=== PATIENT | male | born 1955 | race Two or more races ===

== ENCOUNTER 2021-11-20 14:16 | Emergency (ER) | payer MEDICAID, OTHER ==
[~2021-11-20] VITALS: Ht 160 cm; Wt 72.6 kg
[2021-11-20 16:55] LABS: Basophils # (auto) 0.1 10 ^3/uL (0-0.2); Eosinophils # (auto) 0.1 10 ^3/uL (0-0.8); Eosinophils % (auto) 1.2 % (0.0-7.0); Hematocrit 44.3 % (41.0-53.0); Hemoglobin 15.1 g/dL (13.5-17.5); Mean Corpuscular Hemoglobin 28.7 pg (28.0-32.0); Mean Corpuscular Hgb Conc. 34.2 g/dL (32.0-36.0); Monocytes # (auto) 0.5 10 ^3/uL (0-1.3); Monocytes % (auto) 5.6 % (0.0-12.0); Neutrophils % (auto) 57.2 % (37.0-80.0); Nucleated Red Blood Cells % 0.1 %; Red Blood Cells 5.28 10^6/uL (4.5-5.90); Red Cell Distribution Width 13.7 % (11.8-14.3); White Blood Cell 8.7 10^3/uL (4.4-10.8)
[2021-11-20 17:06] LABS: Albumin 3.5 g/dL (3.4-5.0); Calcium 8.7 mg/dL (8.5-10.1); Potassium 4.1 mmol/L (3.5-5.1)
[2021-11-20] MEDS ORDERED: AZIT250T8 PO (17:26)
[2021-11-20 17:27] LABS: BUN/Creatinine Ratio 15.6; Bilirubin, Total 0.4 mg/dL (0.2-1.0); Total Protein 7.3 g/dL (6.4-8.2)
[2021-11-20 18:15] VITALS: BP 204/95
== END 2021-11-20 18:30 | disposition home or self-care (01) ==
LOC: ER 14:16
DX: R07.89 Other chest pain (principal); J02.9 Acute pharyngitis, unspecified
CPT/HCPCS: 36415; 71046; 80053; 84484; 85025; 93005

== ENCOUNTER 2022-01-21 07:57 | Emergency (ER) | payer MEDICAID ==
[~2022-01-21] VITALS: Ht 160 cm; Wt 72.6 kg
[~2022-01-21 07:57] MED LIST: AZIT250T8 PO
[2022-01-21] MEDS ORDERED: cloNIDine HCL 0.1 MG TAB ONE (08:05)
[2022-01-21] MEDS ORDERED: cloNIDine HCL 0.1 MG TAB PO ONE (08:15)
[2022-01-21] MEDS ORDERED: AMOX-277 PO (10:00)
[2022-01-21] MEDS ORDERED: ACET-1158 PO (10:00)
[2022-01-21 10:08] VITALS: BP 95/59
== END 2022-01-21 10:43 | disposition home or self-care (01) ==
LOC: ER 07:57
DX: K02.9 Dental caries, unspecified (principal); I10 Essential (primary) hypertension; E11.9 Type 2 diabetes mellitus without complications; E78.5 Hyperlipidemia, unspecified; Z90.49 Acquired absence of other specified parts of digestive tract; Z79.2 Long term (current) use of antibiotics; Z79.899 Other long term (current) drug therapy
CPT/HCPCS: 93005

== ENCOUNTER 2022-02-22 06:21 | Emergency (ER) | payer MEDICAID ==
[~2022-02-22] VITALS: Ht 160 cm; Wt 72.6 kg
[~2022-02-22 06:21] MED LIST changes: +ACET-1158 PO; +AMOX-277 PO
[2022-02-22 09:15] LABS: Basophils # (auto) 0.1 10 ^3/uL (0-0.2); Basophils % (auto) 1.2 % (0.0-2.0); Eosinophils # (auto) 0 10 ^3/uL (0-0.8); Eosinophils % (auto) 0.5 % (0.0-7.0); Hemoglobin 15.4 g/dL (13.5-17.5); Lymphocytes # (auto) 1.8 10 ^3/uL (0.4-5.4); Lymphocytes % (auto) 23.6 % (10.0-50.0); Mean Corpuscular Hemoglobin 29.9 pg (28.0-32.0); Mean Corpuscular Hgb Conc. 34.3 g/dL (32.0-36.0); Monocytes # (auto) 0.5 10 ^3/uL (0-1.3); Monocytes % (auto) 6.7 % (0.0-12.0); Neutrophils # (auto) 5.2 10 ^3/uL (1.6-8.6); Nucleated Red Blood Cells % 0.2 %; Red Blood Cells 5.17 10^6/uL (4.5-5.90); Red Cell Distribution Width 13.7 % (11.8-14.3); White Blood Cell 7.7 10^3/uL (4.4-10.8)
[2022-02-22 09:37] LABS: INR 0.98 (0.9-1.15)
[2022-02-22 09:55] LABS: Albumin 3.7 g/dL (3.4-5.0); Calcium 9.3 mg/dL (8.5-10.1); Potassium 4.6 mmol/L (3.5-5.1)
[2022-02-22 09:58] LABS: BUN/Creatinine Ratio 22.4; Bilirubin, Total 0.5 mg/dL (0.2-1.0); Total Protein 7.8 g/dL (6.4-8.2)
[2022-02-22 12:34] LABS: Urine Bacteria NONE SEEN /hpf (None Seen); Urine Blood Negative /uL (Negative); Urine Hyaline Cast FEW /lpf (0 - 2); Urine Specific Gravity 1.021 (1.001-1.035); Urine WBC 1 /hpf (0 - 3)
[2022-02-22 18:29] VITALS: BP 140/69
== END 2022-02-22 18:39 | disposition home or self-care (01) ==
LOC: ER 06:21
DX: M79.89 Other specified soft tissue disorders (principal); E11.65 Type 2 diabetes mellitus with hyperglycemia; E78.5 Hyperlipidemia, unspecified; I10 Essential (primary) hypertension; Z90.49 Acquired absence of other specified parts of digestive tract
CPT/HCPCS: 36415; 71045; 80053; 81001; 83880; 84484; 85025; 85610; 93005; 93970

== ENCOUNTER 2022-03-19 10:30 | Inpatient (IN) | payer MEDICAID ==
[~2022-03-19] VITALS: Ht 160 cm; Wt 64.6 kg
[2022-03-19] MEDS ORDERED: ASPirin 81 mg TAB PO ONE (11:00)
[2022-03-19 12:16] LABS: Basophils # (auto) 0.2 10 ^3/uL (0-0.2); Basophils % (auto) 1.9 % (0.0-2.0); Eosinophils # (auto) 0.1 10 ^3/uL (0-0.8); Eosinophils % (auto) 1.7 % (0.0-7.0); Hematocrit 43.5 % (41.0-53.0); Hemoglobin 15.1 g/dL (13.5-17.5); Lymphocytes # (auto) 2.5 10 ^3/uL (0.4-5.4); Lymphocytes % (auto) 31.2 % (10.0-50.0); Mean Corpuscular Hemoglobin 29.8 pg (28.0-32.0); Mean Corpuscular Hgb Conc. 34.8 g/dL (32.0-36.0); Mean Corpuscular Volume 85.7 fL (80.0-100.0); Monocytes # (auto) 0.4 10 ^3/uL (0-1.3); Monocytes % (auto) 5.2 % (0.0-12.0); Neutrophils # (auto) 4.7 10 ^3/uL (1.6-8.6); Nucleated Red Blood Cells % 0.6 %; Red Blood Cells 5.08 10^6/uL (4.5-5.90); White Blood Cell 7.9 10^3/uL (4.4-10.8)
[2022-03-19 12:49] LABS: Potassium 4.6 mmol/L (3.5-5.1)
[2022-03-19 12:53] LABS: Albumin 3.4 g/dL (3.4-5.0); BUN/Creatinine Ratio 19.5; Calcium 8.6 mg/dL (8.5-10.1)
[2022-03-19 13:06] LABS: Bilirubin, Total 0.5 mg/dL (0.2-1.0); Total Protein 7.4 g/dL (6.4-8.2)
[2022-03-19] MEDS ORDERED: NITROGLYCERIN 0.4 MG SL TAB SL PRN (17:15)
[2022-03-19] MEDS ORDERED: MORPHINE SULFATE INJ 2 MG/ml SYRG IV PRN ×2 (17:15→20:30)
[2022-03-19] MEDS ORDERED: hydrALAZINE HCL 20 MG/ML VL IV PRN (17:30)
[2022-03-19] MEDS ORDERED: LABETALOL HCL 5 MG/ML 4ML SYRINGE IV PRN (17:30)
[2022-03-19] MEDS ORDERED: ONDANSETRON HCL 4 MG/2 ML VIAL IV PRN (20:30)
[2022-03-19] MEDS ORDERED: DOCUSATE SOD 100 MG CAP PO PRN (20:30)
[2022-03-19] MEDS ORDERED: FAMOTIDINE (10MG/ML) 2ML VL IV ONE (20:30)
[2022-03-19] MEDS ORDERED: ACETAMINOPHEN 325 MG TAB PO PRN (20:30)
[2022-03-19] MEDS ORDERED: LORazepam 0.5 MG TAB PO PRN (20:30)
[2022-03-19 20:44] LABS: Magnesium 1.8 mg/dL (1.6-2.6); Phosphorus 3.1 mg/dL (2.5-4.90)
[2022-03-19 20:52] LABS: INR 0.97 (0.9-1.15); Partial Thromboplastin Time 27.1 sec (23.6-33.0)
[2022-03-19] MEDS: ATORVASTATIN 20 MG TAB PO SCH (21:31)
[2022-03-19] MEDS ORDERED: ATORVASTATIN 20 MG TAB PO SCH (22:00)
[2022-03-19 23:00] VITALS: BP 153/87
[2022-03-19 23:51] VITALS: BP 149/87
[2022-03-20] MEDS ORDERED: METOPROLOL SUCCINATE XL 50 MG TAB PO ONE (00:15)
[2022-03-20] MEDS ORDERED: DEXTROSE (50%) 50ML SYRG IV PRN (00:15)
[2022-03-20] MEDS ORDERED: BENAZEPRIL HCL 10 MG TAB PO ONE (00:15)
[2022-03-20] MEDS ORDERED: LORA-622 PO (00:17)
[2022-03-20] MEDS ORDERED: GABA300C10 PO (00:17)
[2022-03-20] MEDS ORDERED: METF-370 PO (00:17)
[2022-03-20] MEDS ORDERED: LISI40TA11 PO (00:17)
[2022-03-20 01:25] LABS: Urine Bacteria NONE SEEN /hpf (None Seen); Urine Blood Negative /uL (Negative); Urine Specific Gravity 1.018 (1.001-1.035); Urine WBC <1 /hpf (0 - 3)
[2022-03-20 01:48] LABS: Alcohol, Urine < 3.0 mg/dL (0-10); Amphetamine Screen, Urine NEGATIVE (NEGATIVE); Barbiturate Scree,Urine NEGATIVE (NEGATIVE); Benzodiazephine Screen, Urine NEGATIVE (NEGATIVE); Cannabinoid Screen, Urine NEGATIVE (NEGATIVE); Cocaine Screen, Urine NEGATIVE (NEGATIVE); Opiate Scree,Urine NEGATIVE (NEGATIVE); Phencyclidine Screen, Urine NEGATIVE (NEGATIVE)
[2022-03-20 01:56] LABS: Protein, Urine 57.6 mg/dL (0.0-11.9)
[2022-03-20] MEDS ORDERED: AMIODARONE HCL (50 MG/ ML) 3 ML VIAL IV ONE (03:31)
[2022-03-20 05:00] VITALS: BP 136/72
[2022-03-20 05:24] LABS: Basophils # (auto) 0.2 10 ^3/uL (0-0.2); Basophils % (auto) 2.3 % (0.0-2.0); Eosinophils # (auto) 0.3 10 ^3/uL (0-0.8); Eosinophils % (auto) 3.5 % (0.0-7.0); Hematocrit 41.3 % (41.0-53.0); Hemoglobin 14.5 g/dL (13.5-17.5); Lymphocytes # (auto) 2.6 10 ^3/uL (0.4-5.4); Lymphocytes % (auto) 36.6 % (10.0-50.0); Mean Corpuscular Hemoglobin 29.9 pg (28.0-32.0); Mean Corpuscular Volume 85.4 fL (80.0-100.0); Monocytes # (auto) 0.5 10 ^3/uL (0-1.3); Monocytes % (auto) 7.6 % (0.0-12.0); Neutrophils # (auto) 3.6 10 ^3/uL (1.6-8.6); Nucleated Red Blood Cells % 0.1 %; Red Blood Cells 4.84 10^6/uL (4.5-5.90); Red Cell Distribution Width 13.9 % (11.8-14.3); White Blood Cell 7.2 10^3/uL (4.4-10.8)
[2022-03-20 05:44] LABS: INR 0.98 (0.9-1.15); Partial Thromboplastin Time 26.4 sec (23.6-33.0)
[2022-03-20 05:46] LABS: Magnesium 1.8 mg/dL (1.6-2.6)
[2022-03-20 05:52] LABS: Albumin 3.1 g/dL (3.4-5.0); BUN/Creatinine Ratio 19.8; Bilirubin, Total 0.7 mg/dL (0.2-1.0); CRP High Sensitivity 0.12 mg/dL (< 0.3); Calcium 8.6 mg/dL (8.5-10.1); Phosphorus 2.9 mg/dL (2.5-4.90); Total Protein 6.7 g/dL (6.4-8.2); Uric Acid 6.1 mg/dL (3.5-7.2)
[2022-03-20] MEDS ORDERED: FUROSEMIDE 20 MG/2 ML VIAL IV SCH (06:00)
[2022-03-20] MEDS: GABAPENTIN 300 MG CAP PO SCH ×3 (06:02→21:47)
[2022-03-20] MEDS: ACCU-CHEK COMFORT CURVE STRIP VI SCH ×4 (06:03→21:48)
[2022-03-20] MEDS: InsuLIN REG 1unit/0.01ml Soln (100units/ml) SC SCH ×4 (06:08→21:49)
[2022-03-20 08:00] VITALS: BP 111/58
[2022-03-20 09:09] VITALS: BP 111/96
[2022-03-20] MEDS ORDERED: ASPirin 81 mg TAB PO SCH (10:00)
[2022-03-20] MEDS: ASPirin 81 mg TAB PO SCH (10:15)
[2022-03-20] MEDS: ISOSORBIDE MONONITRATE 20 MG TAB PO SCH ×2 (10:18→21:48)
[2022-03-20] MEDS: ENOXAPARIN SOD 40 MG/0.4 ML SYRINGE SC SCH (10:18)
[2022-03-20] MEDS: FAMOTIDINE (10MG/ML) 2ML VL IV SCH (10:21)
[2022-03-20] MEDS: BENAZEPRIL HCL 10 MG TAB PO SCH (10:23)
[2022-03-20] MEDS: HYDROcodone-ACET 5/325MG TAB PO PRN (10:24)
[2022-03-20] MEDS: METOPROLOL SUCCINATE XL 50 MG TAB PO SCH (12:42)
[2022-03-20 13:00] VITALS: BP 116/62
[2022-03-20 17:21] VITALS: BP 107/54
[2022-03-20] MEDS: ATORVASTATIN 20 MG TAB PO SCH (21:47)
[2022-03-20 22:00] VITALS: BP 112/57
[2022-03-21] MEDS: HYDROcodone-ACET 5/325MG TAB PO PRN ×2 (04:25→17:50)
[2022-03-21 05:00] VITALS: BP 107/61
[2022-03-21] MEDS: GABAPENTIN 300 MG CAP PO SCH ×3 (06:43→22:47)
[2022-03-21] MEDS: ACCU-CHEK COMFORT CURVE STRIP VI SCH ×4 (06:44→22:47)
[2022-03-21] MEDS: InsuLIN REG 1unit/0.01ml Soln (100units/ml) SC SCH ×4 (06:44→22:00)
[2022-03-21] MEDS ORDERED: REGADENOSON 0.4 MG/5 ML SYRG IV ONE (08:00)
[2022-03-21 08:08] VITALS: BP 122/64
[2022-03-21 08:17] LABS: BUN/Creatinine Ratio 27.9; Calcium 8.6 mg/dL (8.5-10.1); Magnesium 2.3 mg/dL (1.6-2.6); Potassium 4.1 mmol/L (3.5-5.1)
[2022-03-21] MEDS: ASPirin 81 mg TAB PO SCH (12:03)
[2022-03-21] MEDS: FAMOTIDINE (10MG/ML) 2ML VL IV SCH (12:03)
[2022-03-21] MEDS: ENOXAPARIN SOD 40 MG/0.4 ML SYRINGE SC SCH (12:03)
[2022-03-21] MEDS: ISOSORBIDE MONONITRATE 20 MG TAB PO SCH ×2 (12:08→22:00)
[2022-03-21] MEDS: METOPROLOL SUCCINATE XL 50 MG TAB PO SCH (12:09)
[2022-03-21] MEDS: BENAZEPRIL HCL 10 MG TAB PO SCH (12:09)
[2022-03-21 12:38] VITALS: BP 158/83
[2022-03-21 17:31] VITALS: BP 138/72
[2022-03-21 22:00] VITALS: BP 110/68
[2022-03-21] MEDS: ATORVASTATIN 20 MG TAB PO SCH (22:47)
[2022-03-22 05:00] VITALS: BP 137/67
[2022-03-22] MEDS: ACCU-CHEK COMFORT CURVE STRIP VI SCH ×4 (06:24→23:16)
[2022-03-22] MEDS: GABAPENTIN 300 MG CAP PO SCH ×3 (06:24→23:16)
[2022-03-22] MEDS: InsuLIN REG 1unit/0.01ml Soln (100units/ml) SC SCH ×4 (06:25→22:00)
[2022-03-22] MEDS: ENOXAPARIN SOD 40 MG/0.4 ML SYRINGE SC SCH (07:53)
[2022-03-22 09:00] VITALS: BP 148/75
[2022-03-22] MEDS: FAMOTIDINE (10MG/ML) 2ML VL IV SCH (09:13)
[2022-03-22] MEDS: ISOSORBIDE MONONITRATE 20 MG TAB PO SCH ×2 (09:14→23:15)
[2022-03-22] MEDS: BENAZEPRIL HCL 10 MG TAB PO SCH (09:15)
[2022-03-22] MEDS: ASPirin 81 mg TAB PO SCH (09:15)
[2022-03-22] MEDS: METOPROLOL SUCCINATE XL 50 MG TAB PO SCH (09:16)
[2022-03-22] MEDS: CHOLECALCIFEROL (VITD3) 2,000 UNIT CAP/TAB PO SCH (09:17)
[2022-03-22 13:00] VITALS: BP 100/52
[2022-03-22 16:56] VITALS: BP 117/57
[2022-03-22] MEDS: HYDROcodone-ACET 5/325MG TAB PO PRN (19:34)
[2022-03-22 22:00] VITALS: BP 163/78
[2022-03-22] MEDS: ATORVASTATIN 20 MG TAB PO SCH (23:15)
[2022-03-23 05:00] VITALS: BP 112/64
[2022-03-23 06:17] LABS: Basophils # (auto) 0.1 10 ^3/uL (0-0.2); Basophils % (auto) 1.3 % (0.0-2.0); Eosinophils # (auto) 0.3 10 ^3/uL (0-0.8); Eosinophils % (auto) 3.3 % (0.0-7.0); Hematocrit 41.9 % (41.0-53.0); Hemoglobin 14.5 g/dL (13.5-17.5); Lymphocytes % (auto) 44.7 % (10.0-50.0); Mean Corpuscular Hemoglobin 29.9 pg (28.0-32.0); Mean Corpuscular Hgb Conc. 34.6 g/dL (32.0-36.0); Mean Corpuscular Volume 86.4 fL (80.0-100.0); Monocytes # (auto) 0.6 10 ^3/uL (0-1.3); Monocytes % (auto) 6.7 % (0.0-12.0); Neutrophils # (auto) 3.9 10 ^3/uL (1.6-8.6); Nucleated Red Blood Cells % 0.1 %; Red Blood Cells 4.85 10^6/uL (4.5-5.90); Red Cell Distribution Width 13.7 % (11.8-14.3); White Blood Cell 8.8 10^3/uL (4.4-10.8)
[2022-03-23 06:35] LABS: BUN/Creatinine Ratio 24.8; Calcium 8.9 mg/dL (8.5-10.1); Potassium 4.3 mmol/L (3.5-5.1)
[2022-03-23] MEDS: GABAPENTIN 300 MG CAP PO SCH ×2 (06:57→15:25)
[2022-03-23] MEDS: ACCU-CHEK COMFORT CURVE STRIP VI SCH ×3 (06:57→17:00)
[2022-03-23] MEDS: InsuLIN REG 1unit/0.01ml Soln (100units/ml) SC SCH ×3 (06:58→17:00)
[2022-03-23 08:53] VITALS: BP 131/80
[2022-03-23] MEDS: FAMOTIDINE (10MG/ML) 2ML VL IV SCH (09:11)
[2022-03-23] MEDS: CHOLECALCIFEROL (VITD3) 2,000 UNIT CAP/TAB PO SCH (09:16)
[2022-03-23] MEDS: ISOSORBIDE MONONITRATE 20 MG TAB PO SCH (09:16)
[2022-03-23] MEDS: BENAZEPRIL HCL 10 MG TAB PO SCH (09:16)
[2022-03-23] MEDS: METOPROLOL SUCCINATE XL 50 MG TAB PO SCH (09:17)
[2022-03-23] MEDS: ASPirin 81 mg TAB PO SCH (09:17)
[2022-03-23] MEDS: ENOXAPARIN SOD 40 MG/0.4 ML SYRINGE SC SCH (09:17)
[2022-03-23] MEDS: HYDROcodone-ACET 5/325MG TAB PO PRN (09:42)
[2022-03-23] MEDS ORDERED: CLOPIDOGREL BISULFATE 75 MG TAB PO SCH (10:00)
[2022-03-23] MEDS ORDERED: ASPI-378 PO (12:57)
[2022-03-23] MEDS ORDERED: CHOL20007 PO (12:57)
[2022-03-23] MEDS ORDERED: ATO40T PO (12:57)
[2022-03-23] MEDS ORDERED: METO25TA36 PO (12:57)
[2022-03-23] MEDS ORDERED: CLOP75TA28 PO (12:57)
[2022-03-23 13:00] VITALS: BP 100/61
[2022-03-23 15:26] VITALS: BP 131/80
== END 2022-03-23 18:02 | disposition home or self-care (01) | DRG 198 ==
LOC: EDBD 10:30 → ER 10:30 → TELE 17:15 → TELE-WESTW 21:45
PROVIDERS: ADMIT Hospitalist; ATTEND Internal Medicine
DX: I25.10 Atherosclerotic heart disease of native coronary artery without angina pectoris (principal); I50.33 Acute on chronic diastolic (congestive) heart failure; E11.40 Type 2 diabetes mellitus with diabetic neuropathy, unspecified; E11.51 Type 2 diabetes mellitus with diabetic peripheral angiopathy without gangrene; I16.1 Hypertensive emergency; E55.9 Vitamin D deficiency, unspecified; I73.9 Peripheral vascular disease, unspecified; E11.65 Type 2 diabetes mellitus with hyperglycemia; E78.5 Hyperlipidemia, unspecified; F17.200 Nicotine dependence, unspecified, uncomplicated; I11.0 Hypertensive heart disease with heart failure; Z20.822 Contact with and (suspected) exposure to COVID-19; J44.9 Chronic obstructive pulmonary disease, unspecified; Z91.19 Patient's noncompliance with other medical treatment and regimen; Z83.3 Family history of diabetes mellitus; Z90.49 Acquired absence of other specified parts of digestive tract; Z79.84 Long term (current) use of oral hypoglycemic drugs
CPT/HCPCS: 36415; 70450; 71045; 78452; 80048; 80053; 80061; 80307; 81001; 82306; 82550; 82728; 82962; 83036; 83615; 83690; 83735; 83880; 84100; 84156; 84443; 84484; 84550; 85025; 85379; 85610; 85652; 85730; 86141; 87040; 87081; 87086; 93005; 93017; 93306; 93925; 93970; 96374; 96375; G0378; J1815; J2405; J3490

== ENCOUNTER 2022-08-13 18:05 | Emergency (ER) | payer MEDICAID ==
[~2022-08-13] VITALS: Ht 165.1 cm; Wt 66.0 kg
[~2022-08-13 18:05] MED LIST changes: +CLOP75TA28 PO; +GABA300C10 PO; +LISI40TA11 PO; +LORA-622 PO; +METF-370 PO
[2022-08-13 18:58] LABS: Basophils # (auto) 0.2 10 ^3/uL (0-0.2); Basophils % (auto) 2.1 % (0.0-2.0); Eosinophils # (auto) 0.2 10 ^3/uL (0-0.8); Eosinophils % (auto) 2.7 % (0.0-7.0); Hematocrit 43.1 % (41.0-53.0); Hemoglobin 14.5 g/dL (13.5-17.5); Lymphocytes # (auto) 3.6 10 ^3/uL (0.4-5.4); Lymphocytes % (auto) 48.5 % (10.0-50.0); Mean Corpuscular Hemoglobin 29.2 pg (28.0-32.0); Mean Corpuscular Hgb Conc. 33.7 g/dL (32.0-36.0); Mean Corpuscular Volume 86.5 fL (80.0-100.0); Monocytes # (auto) 0.5 10 ^3/uL (0-1.3); Monocytes % (auto) 6.4 % (0.0-12.0); Neutrophils % (auto) 40.3 % (37.0-80.0); Nucleated Red Blood Cells % 0.1 %; Red Blood Cells 4.99 10^6/uL (4.5-5.90); Red Cell Distribution Width 13.3 % (11.8-14.3); White Blood Cell 7.5 10^3/uL (4.4-10.8)
[2022-08-13 19:22] LABS: Albumin 3.7 g/dL (3.4-5.0); BUN/Creatinine Ratio 18.5; Potassium 4.6 mmol/L (3.5-5.1)
[2022-08-13 19:25] LABS: Bilirubin, Total 0.4 mg/dL (0.2-1.0)
[2022-08-13 23:25] LABS: Urine Bacteria NONE SEEN /hpf (None Seen); Urine Blood Negative /uL (Negative); Urine Specific Gravity 1.015 (1.001-1.035); Urine WBC 1 /hpf (0 - 3)
[2022-08-13] MEDS ORDERED: IOHEXOL 350 MG/ML 100ML IJ ONE (23:27)
[2022-08-14 06:00] VITALS: BP 165/78
== END 2022-08-14 06:34 | disposition home or self-care (01) ==
LOC: ER 18:07
DX: R04.2 Hemoptysis (principal); E11.9 Type 2 diabetes mellitus without complications; E78.5 Hyperlipidemia, unspecified; I10 Essential (primary) hypertension; Z90.49 Acquired absence of other specified parts of digestive tract; Z88.1 Allergy status to other antibiotic agents
CPT/HCPCS: 36415; 71260; 74177; 80053; 81001; 85025; 86850; 86900; 86901; 93005; 99285; Q9967

== ENCOUNTER 2022-08-14 15:37 | Inpatient (IN) | payer MEDICAID ==
[~2022-08-14] VITALS: Ht 160 cm; Wt 67.9 kg
[2022-08-14] MEDS ORDERED: ONDANSETRON HCL 4 MG/2 ML VIAL IV ONE ×2 (16:00→22:30)
[2022-08-14] MEDS ORDERED: MORPHINE SULFATE 4 MG/ML SYR/VIAL IV ONE ×2 (16:00→22:30)
[2022-08-14] MEDS ORDERED: SODIUM CHLORIDE 0.9% 1,000 ML IVB ONE (16:00)
[2022-08-14] MEDS ORDERED: IOHEXOL 300 MG/ML 100ML BOTTLE IJ ONE (17:02)
[2022-08-14 19:09] LABS: Basophils # (auto) 0.1 10 ^3/uL (0-0.2); Basophils % (auto) 1.5 % (0.0-2.0); Eosinophils # (auto) 0 10 ^3/uL (0-0.8); Eosinophils % (auto) 0.4 % (0.0-7.0); Hematocrit 44.2 % (41.0-53.0); Hemoglobin 14.5 g/dL (13.5-17.5); Lymphocytes # (auto) 2.4 10 ^3/uL (0.4-5.4); Lymphocytes % (auto) 25.7 % (10.0-50.0); Mean Corpuscular Hemoglobin 29.1 pg (28.0-32.0); Mean Corpuscular Hgb Conc. 32.8 g/dL (32.0-36.0); Mean Corpuscular Volume 88.8 fL (80.0-100.0); Monocytes # (auto) 0.4 10 ^3/uL (0-1.3); Monocytes % (auto) 4.3 % (0.0-12.0); Neutrophils # (auto) 6.3 10 ^3/uL (1.6-8.6); Neutrophils % (auto) 68.1 % (37.0-80.0); Nucleated Red Blood Cells % 0.1 %; Red Blood Cells 4.98 10^6/uL (4.5-5.90); Red Cell Distribution Width 13.2 % (11.8-14.3); White Blood Cell 9.3 10^3/uL (4.4-10.8)
[2022-08-14 19:19] LABS: Alanine Aminotransferase 34 U/L (16-61); Albumin 3.6 g/dL (3.4-5.0); Anion Gap 12 (5-15); Aspartate Aminotransferase 17 U/L (15-37); BUN/Creatinine Ratio 19.7; Blood Urea Nitrogen 14 mg/dL (7-18); Calcium 8.3 mg/dL (8.5-10.1); Carbon Dioxide 19 mmol/L (21-32); Chloride 108 mmol/L (98-107); GFR African American 144 mL/min; GFR Non-African American 119 mL/min; Glucose 164 mg/dL (74-106); Lipase 207 U/L (73-393); Magnesium 1.9 mg/dL (1.6-2.6); Potassium 4.7 mmol/L (3.5-5.1); Sodium 139 mmol/L (136-145)
[2022-08-14 19:21] LABS: INR 0.91 (0.9-1.15); Partial Thromboplastin Time 27.1 sec (24.6-33.4)
[2022-08-14 19:22] LABS: Alkaline Phosphatase 136 U/L (45-117); Bilirubin, Total 0.4 mg/dL (0.2-1.0); Total Protein 7.2 g/dL (6.4-8.2)
[2022-08-14 19:38] LABS: Urine Bacteria NONE SEEN /hpf (None Seen); Urine Blood Negative /uL (Negative); Urine Specific Gravity 1.007 (1.001-1.035); Urine WBC <1 /hpf (0 - 3)
[2022-08-15] MEDS ORDERED: ONDANSETRON HCL 4 MG/2 ML VIAL IV PRN ×2 (03:30→11:45)
[2022-08-15] MEDS ORDERED: SODIUM CHLORIDE 0.9% 1,000 ML IV SCH (03:30)
[2022-08-15] MEDS ORDERED: DEXTROSE (50%) 50ML SYRG IV PRN ×2 (03:30→12:00)
[2022-08-15] MEDS: hydrALAZINE HCL 20 MG/ML VL IV PRN ×2 (04:31→22:14)
[2022-08-15 04:43] LABS: Hematocrit 39.3 % (41.0-53.0); Hemoglobin 13.8 g/dL (13.5-17.5)
[2022-08-15] MEDS ORDERED: ACCU-CHEK COMFORT CURVE STRIP VI SCH (06:00)
[2022-08-15] MEDS: InsuLIN REG 1unit/0.01ml Soln (100units/ml) SC SCH ×4 (08:14→17:51)
[2022-08-15] MEDS ORDERED: PANTOPRAZOLE 40 MG/10 ML VIAL INJ IV SCH (10:00)
[2022-08-15] MEDS ORDERED: LABETALOL HCL 5 MG/ML 4ML SYRINGE IV PRN (11:45)
[2022-08-15] MEDS ORDERED: MORPHINE SULFATE INJ 2 MG/ml SYRG IV PRN (11:45)
[2022-08-15] MEDS: ACCU-CHEK COMFORT CURVE STRIP VI SCH ×3 (12:18→23:59)
[2022-08-15] MEDS: SODIUM CHLORIDE 0.9% 1,000 ML IV SCH (13:35)
[2022-08-15 22:00] VITALS: BP 151/72
[2022-08-15] MEDS: PANTOPRAZOLE 40 MG/10 ML VIAL INJ IV SCH (22:13)
[2022-08-16 05:25] VITALS: BP 125/63
[2022-08-16] MEDS: InsuLIN REG 1unit/0.01ml Soln (100units/ml) SC SCH ×5 (06:00→22:00)
[2022-08-16] MEDS: ACCU-CHEK COMFORT CURVE STRIP VI SCH ×4 (06:21→22:00)
[2022-08-16 06:25] LABS: Basophils # (auto) 0.2 10 ^3/uL (0-0.2); Basophils % (auto) 2.1 % (0.0-2.0); Eosinophils # (auto) 0.2 10 ^3/uL (0-0.8); Eosinophils % (auto) 2.9 % (0.0-7.0); Hematocrit 39.1 % (41.0-53.0); Hemoglobin 13.4 g/dL (13.5-17.5); Lymphocytes # (auto) 2.3 10 ^3/uL (0.4-5.4); Lymphocytes % (auto) 29.3 % (10.0-50.0); Mean Corpuscular Hemoglobin 29.9 pg (28.0-32.0); Mean Corpuscular Hgb Conc. 34.3 g/dL (32.0-36.0); Mean Corpuscular Volume 87.2 fL (80.0-100.0); Monocytes # (auto) 0.5 10 ^3/uL (0-1.3); Monocytes % (auto) 6.4 % (0.0-12.0); Neutrophils # (auto) 4.6 10 ^3/uL (1.6-8.6); Neutrophils % (auto) 59.3 % (37.0-80.0); Red Blood Cells 4.49 10^6/uL (4.5-5.90); Red Cell Distribution Width 13.7 % (11.8-14.3); White Blood Cell 7.8 10^3/uL (4.4-10.8)
[2022-08-16 06:38] LABS: BUN/Creatinine Ratio 14.7; Calcium 8.2 mg/dL (8.5-10.1)
[2022-08-16 08:00] VITALS: BP 133/73
[2022-08-16] MEDS: SODIUM CHLORIDE 0.9% 1,000 ML IV SCH ×3 (08:06→17:30)
[2022-08-16] MEDS ORDERED: DEXTROSE (50%) 50ML SYRG IV PRN (08:45)
[2022-08-16 09:00] VITALS: BP 133/73
[2022-08-16] MEDS: PANTOPRAZOLE 40 MG/10 ML VIAL INJ IV SCH ×2 (09:17→22:31)
[2022-08-16] MEDS: SUCRALFATE 1 GM/10 ML ORAL SUSP GT SCH ×2 (11:24→16:47)
[2022-08-16 13:00] VITALS: BP_SYST 125; BP_SYST 132; BP_DIAS 71; BP_DIAS 75
[2022-08-16] MEDS: hydrALAZINE HCL 20 MG/ML VL IV PRN (16:48)
[2022-08-16 17:00] VITALS: BP 171/82
[2022-08-16 23:42] VITALS: BP 130/71
[2022-08-17] MEDS: SODIUM CHLORIDE 0.9% 1,000 ML IV SCH ×2 (04:00→16:29)
[2022-08-17 04:27] VITALS: BP 146/65
[2022-08-17 06:13] LABS: Basophils # (auto) 0.2 10 ^3/uL (0-0.2); Basophils % (auto) 2.3 % (0.0-2.0); Eosinophils # (auto) 0.2 10 ^3/uL (0-0.8); Eosinophils % (auto) 2.3 % (0.0-7.0); Hematocrit 38.3 % (41.0-53.0); Hemoglobin 13.4 g/dL (13.5-17.5); Lymphocytes # (auto) 2.6 10 ^3/uL (0.4-5.4); Lymphocytes % (auto) 34.4 % (10.0-50.0); Mean Corpuscular Hemoglobin 30.2 pg (28.0-32.0); Mean Corpuscular Volume 86.3 fL (80.0-100.0); Monocytes # (auto) 0.5 10 ^3/uL (0-1.3); Monocytes % (auto) 6.7 % (0.0-12.0); Neutrophils # (auto) 4.1 10 ^3/uL (1.6-8.6); Neutrophils % (auto) 54.3 % (37.0-80.0); Red Blood Cells 4.44 10^6/uL (4.5-5.90); Red Cell Distribution Width 13.6 % (11.8-14.3); White Blood Cell 7.5 10^3/uL (4.4-10.8)
[2022-08-17] MEDS: InsuLIN REG 1unit/0.01ml Soln (100units/ml) SC SCH ×4 (07:00→21:54)
[2022-08-17] MEDS: SUCRALFATE 1 GM/10 ML ORAL SUSP GT SCH ×3 (07:17→16:28)
[2022-08-17] MEDS: ACCU-CHEK COMFORT CURVE STRIP VI SCH ×4 (07:17→21:53)
[2022-08-17 08:45] VITALS: BP 151/70
[2022-08-17] MEDS: PANTOPRAZOLE 40 MG/10 ML VIAL INJ IV SCH ×2 (10:14→21:53)
[2022-08-17] MEDS: MORPHINE SULFATE INJ 2 MG/ml SYRG IV PRN (11:13)
[2022-08-17] MEDS ORDERED: MIDAZOLAM HCL 5 MG/ML-1ML VIAL ONE (12:19)
[2022-08-17] MEDS ORDERED: LIDOCAINE VISCOUS 2% 15ML UD ONE (12:19)
[2022-08-17] MEDS ORDERED: diphenhdrAMINE HCL 50 MG/1 ML VL ONE (12:20)
[2022-08-17] MEDS ORDERED: fentaNYL CITRATE 100 MCG/2 ML VL ONE (12:20)
[2022-08-17] MEDS: hydrALAZINE HCL 20 MG/ML VL IV PRN (12:33)
[2022-08-17 12:45] VITALS: BP 186/79
[2022-08-17] MEDS ORDERED: LIDOCAINE VISCOUS 2% 15ML UD MT ONE (14:43)
[2022-08-17] MEDS ORDERED: diphenhdrAMINE HCL 50 MG/1 ML VL IV ONE ×2 (14:45→14:47)
[2022-08-17] MEDS ORDERED: fentaNYL CITRATE 100 MCG/2 ML VL IV ONE ×2 (14:45→14:50)
[2022-08-17] MEDS ORDERED: MIDAZOLAM HCL 5 MG/ML-1ML VIAL IV ONE ×2 (14:45→14:50)
[2022-08-17 16:40] VITALS: BP 171/75
[2022-08-17 23:09] VITALS: BP 144/59
[2022-08-18] VITALS (7 sets, daily range): BP systolic 130–169; BP diastolic 67–84
[2022-08-18] MEDS: MORPHINE SULFATE INJ 2 MG/ml SYRG IV PRN ×4 (00:38→21:37)
[2022-08-18] MEDS: InsuLIN REG 1unit/0.01ml Soln (100units/ml) SC SCH ×4 (05:46→21:50)
[2022-08-18] MEDS: ACCU-CHEK COMFORT CURVE STRIP VI SCH ×4 (05:46→21:37)
[2022-08-18] MEDS: SUCRALFATE 1 GM/10 ML ORAL SUSP GT SCH ×3 (05:49→17:16)
[2022-08-18] MEDS: hydrALAZINE HCL 20 MG/ML VL IV PRN ×2 (05:49→17:22)
[2022-08-18] MEDS: SODIUM CHLORIDE 0.9% 1,000 ML IV SCH (09:47)
[2022-08-18] MEDS: PANTOPRAZOLE 40 MG/10 ML VIAL INJ IV SCH ×2 (09:48→21:36)
[2022-08-18] MEDS: LISINOPRIL 20 MG TAB PO SCH (12:21)
[2022-08-19] MEDS: SODIUM CHLORIDE 0.9% 1,000 ML IV SCH ×2 (01:35→18:00)
[2022-08-19 05:00] VITALS: BP 169/76
[2022-08-19] MEDS: InsuLIN REG 1unit/0.01ml Soln (100units/ml) SC SCH ×4 (05:55→22:22)
[2022-08-19] MEDS: SUCRALFATE 1 GM/10 ML ORAL SUSP GT SCH ×3 (05:56→17:11)
[2022-08-19] MEDS: ACCU-CHEK COMFORT CURVE STRIP VI SCH ×4 (05:56→22:21)
[2022-08-19] MEDS: hydrALAZINE HCL 20 MG/ML VL IV PRN ×2 (05:57→22:22)
[2022-08-19] MEDS: MORPHINE SULFATE INJ 2 MG/ml SYRG IV PRN ×3 (05:58→15:18)
[2022-08-19 08:00] VITALS: BP 169/76
[2022-08-19 09:00] VITALS: BP 174/82
[2022-08-19] MEDS: PANTOPRAZOLE 40 MG/10 ML VIAL INJ IV SCH ×2 (09:28→22:21)
[2022-08-19] MEDS: LISINOPRIL 20 MG TAB PO SCH (09:29)
[2022-08-19] MEDS: HYDROcodone-ACET 5/325MG TAB PO PRN ×2 (11:37→22:21)
[2022-08-19] MEDS: cloNIDine HCL 0.1 MG TAB PO PRN (11:39)
[2022-08-19 13:00] VITALS: BP 146/69
[2022-08-19 16:51] VITALS: BP 148/76
[2022-08-19 22:00] VITALS: BP 156/61
[2022-08-20] MEDS: MORPHINE SULFATE INJ 2 MG/ml SYRG IV PRN ×4 (00:42→20:37)
[2022-08-20 05:00] VITALS: BP 151/73
[2022-08-20] MEDS: ACCU-CHEK COMFORT CURVE STRIP VI SCH ×4 (06:43→22:31)
[2022-08-20] MEDS: InsuLIN REG 1unit/0.01ml Soln (100units/ml) SC SCH ×4 (06:43→22:31)
[2022-08-20] MEDS: SUCRALFATE 1 GM/10 ML ORAL SUSP GT SCH ×3 (06:50→17:10)
[2022-08-20] MEDS: cloNIDine HCL 0.1 MG TAB PO PRN ×2 (06:50→22:32)
[2022-08-20 08:00] VITALS: BP 177/87
[2022-08-20] MEDS: LISINOPRIL 20 MG TAB PO SCH (09:04)
[2022-08-20] MEDS: PANTOPRAZOLE 40 MG/10 ML VIAL INJ IV SCH ×2 (09:04→22:17)
[2022-08-20] MEDS ORDERED: POLYETHYLENE GLYCOL 17 GM PWDR PO PRN (10:45)
[2022-08-20] MEDS ORDERED: POLYETHYLENE GLYCOL 17 GM PWDR PO ONE (10:45)
[2022-08-20] MEDS ORDERED: METOCLOPRAMIDE HCL 5MG/ml INJ 2ml VIAL IV ONE (10:45)
[2022-08-20 11:07] LABS: Basophils # (auto) 0.1 10 ^3/uL (0-0.2); Basophils % (auto) 1.4 % (0.0-2.0); Eosinophils # (auto) 0.1 10 ^3/uL (0-0.8); Eosinophils % (auto) 1.7 % (0.0-7.0); Hematocrit 38.9 % (41.0-53.0); Hemoglobin 13.2 g/dL (13.5-17.5); Lymphocytes # (auto) 1.4 10 ^3/uL (0.4-5.4); Lymphocytes % (auto) 20.5 % (10.0-50.0); Mean Corpuscular Hemoglobin 29.5 pg (28.0-32.0); Mean Corpuscular Volume 86.7 fL (80.0-100.0); Monocytes # (auto) 0.5 10 ^3/uL (0-1.3); Monocytes % (auto) 6.8 % (0.0-12.0); Neutrophils # (auto) 4.8 10 ^3/uL (1.6-8.6); Neutrophils % (auto) 69.6 % (37.0-80.0); Red Blood Cells 4.49 10^6/uL (4.5-5.90); Red Cell Distribution Width 13.4 % (11.8-14.3); White Blood Cell 6.9 10^3/uL (4.4-10.8)
[2022-08-20 11:27] LABS: Calcium 8.3 mg/dL (8.5-10.1); Potassium 3.9 mmol/L (3.5-5.1)
[2022-08-20] MEDS: DOCUSATE SOD 100 MG CAP PO SCH ×2 (11:27→22:17)
[2022-08-20 11:31] LABS: BUN/Creatinine Ratio 10.5; Bilirubin, Total 0.6 mg/dL (0.2-1.0)
[2022-08-20 12:00] VITALS: BP 138/57
[2022-08-20] MEDS: metroNIDAZOLE 500MG/100ML 100 ML IV SCH ×2 (15:14→22:17)
[2022-08-20 16:00] VITALS: BP 132/66
[2022-08-20] MEDS: cefTRIAXone 1GM/50ML D5W 50 ML IV SCH (17:10)
[2022-08-20 22:00] VITALS: BP 165/82
[2022-08-21 05:00] VITALS: BP 98/49
[2022-08-21] MEDS: SUCRALFATE 1 GM/10 ML ORAL SUSP GT SCH ×3 (06:16→17:48)
[2022-08-21] MEDS: metroNIDAZOLE 500MG/100ML 100 ML IV SCH ×2 (06:17→16:00)
[2022-08-21] MEDS: ACCU-CHEK COMFORT CURVE STRIP VI SCH ×3 (06:19→17:48)
[2022-08-21] MEDS: InsuLIN REG 1unit/0.01ml Soln (100units/ml) SC SCH ×3 (06:22→17:49)
[2022-08-21 08:00] VITALS: BP 137/71
[2022-08-21] MEDS ORDERED: CIPR500T4 PO (09:34)
[2022-08-21] MEDS ORDERED: AML5T PO (09:34)
[2022-08-21] MEDS ORDERED: HYDR-4902 PO (09:34)
[2022-08-21] MEDS ORDERED: LISI20TA28 PO (09:34)
[2022-08-21] MEDS ORDERED: METR500T PO (09:34)
[2022-08-21] MEDS: LACTULOSE 20Gm/30ML SOLN PO SCH ×3 (09:44→17:48)
[2022-08-21] MEDS: PANTOPRAZOLE 40 MG/10 ML VIAL INJ IV SCH (09:44)
[2022-08-21] MEDS: DOCUSATE SOD 100 MG CAP PO SCH (09:44)
[2022-08-21] MEDS: cefTRIAXone 1GM/50ML D5W 50 ML IV SCH (09:44)
[2022-08-21] MEDS ORDERED: LISINOPRIL 20 MG TAB PO SCH (10:00)
[2022-08-21 12:00] VITALS: BP 134/68
[2022-08-21 16:00] VITALS: BP 170/93
[2022-08-21] MEDS ORDERED: LACTULOSE 20Gm/30ML SOLN PO ONE (16:00)
[2022-08-21] MEDS: cloNIDine HCL 0.1 MG TAB PO PRN (17:58)
[2022-08-21] MEDS: hydrALAZINE HCL 20 MG/ML VL IV PRN (18:20)
== END 2022-08-21 19:20 | disposition home or self-care (01) | DRG 241 ==
LOC: EDBD 15:37 → ER 15:37 → EDUNIT# 15:37 → OVERFLOW 08-15 03:33 → EAST 08-15 19:17
PROVIDERS: ADMIT Nurse Practitioner; ATTEND Nurse Practitioner Acute Care
PROC: 0DB98ZX Excision of Duodenum, Via Natural or Artificial Opening Endoscopic, Diagnostic (ICD-10-PCS; principal; 2022-08-15)
PROC: 0DB68ZX Excision of Stomach, Via Natural or Artificial Opening Endoscopic, Diagnostic (ICD-10-PCS; 2022-08-15)
PROC: 0DB48ZX Excision of Esophagogastric Junction, Via Natural or Artificial Opening Endoscopic, Diagnostic (ICD-10-PCS; 2022-08-15)
DX: K29.91 Gastroduodenitis, unspecified, with bleeding (principal); K22.11 Ulcer of esophagus with bleeding; E11.51 Type 2 diabetes mellitus with diabetic peripheral angiopathy without gangrene; E78.5 Hyperlipidemia, unspecified; I10 Essential (primary) hypertension; R07.9 Chest pain, unspecified; E66.9 Obesity, unspecified; Z68.26 Body mass index [BMI] 26.0-26.9, adult; K21.9 Gastro-esophageal reflux disease without esophagitis; K44.9 Diaphragmatic hernia without obstruction or gangrene; K59.00 Constipation, unspecified; Z20.822 Contact with and (suspected) exposure to COVID-19; K52.9 Noninfective gastroenteritis and colitis, unspecified; Z83.3 Family history of diabetes mellitus; Z90.49 Acquired absence of other specified parts of digestive tract; K92.0 Hematemesis
CPT/HCPCS: 36415; 71045; 74176; 74177; 80048; 80053; 81001; 82962; 83036; 83690; 83735; 84484; 85014; 85018; 85025; 85610; 85730; 86677; 86850; 86900; 86901; 87426; 93005; 96361; 96372; 96374; 96375; 96376; C9113; G0378; J0696; J1815; J2250; J2405; J3490

== ENCOUNTER 2022-09-05 12:07 | Inpatient (IN) | payer OTHER, MEDICAID ==
[2022-09-05] VITALS: BP 145/67
[~2022-09-05] VITALS: Ht 160 cm; Wt 68.9 kg
[~2022-09-05 12:07] MED LIST changes: +AML5T PO; +CIPR500T4 PO; +HYDR-4902 PO; +LISI20TA28 PO; +METR500T PO
[2022-09-05] MEDS ORDERED: SODIUM CHLORIDE 0.9% 1,000 ML IV ONE (12:45)
[2022-09-05 13:22] LABS: Basophils # (auto) 0 10 ^3/uL (0-0.2); Basophils % (auto) 0.2 % (0.0-2.0); Eosinophils # (auto) 0.1 10 ^3/uL (0-0.8); Eosinophils % (auto) 1.2 % (0.0-7.0); Hematocrit 43.7 % (41.0-53.0); Lymphocytes # (auto) 2.2 10 ^3/uL (0.4-5.4); Lymphocytes % (auto) 30.9 % (10.0-50.0); Mean Corpuscular Hgb Conc. 34.3 g/dL (32.0-36.0); Mean Corpuscular Volume 87.5 fL (80.0-100.0); Monocytes # (auto) 0.4 10 ^3/uL (0-1.3); Monocytes % (auto) 5.6 % (0.0-12.0); Neutrophils # (auto) 4.5 10 ^3/uL (1.6-8.6); Neutrophils % (auto) 62.1 % (37.0-80.0); Red Cell Distribution Width 13.3 % (11.8-14.3); White Blood Cell 7.2 10^3/uL (4.4-10.8)
[2022-09-05 13:36] LABS: INR 0.88 (0.9-1.15); Partial Thromboplastin Time 25.9 sec (24.6-33.4)
[2022-09-05 13:42] LABS: Albumin 3.5 g/dL (3.4-5.0); BUN/Creatinine Ratio 17.7; Calcium 8.4 mg/dL (8.5-10.1); Potassium 4.9 mmol/L (3.5-5.1)
[2022-09-05 13:45] LABS: Bilirubin, Total 0.3 mg/dL (0.2-1.0); Total Protein 7.3 g/dL (6.4-8.2)
[2022-09-05] MEDS ORDERED: PANTOPRAZOLE 40 MG/10 ML VIAL INJ IV ONE (16:30)
[2022-09-05] MEDS ORDERED: DEXTROSE (50%) 50ML SYRG IV PRN (18:00)
[2022-09-05] MEDS: PANTOPRAZOLE 40mg/50ML NS AE 50 ML IV SCH ×2 (18:00→23:23)
[2022-09-05] MEDS ORDERED: PANTOPRAZOLE 80 MG in SODIUM CHL 0.9% 100 ML IV ONE (18:00)
[2022-09-05] MEDS ORDERED: ONDANSETRON HCL 4 MG/2 ML VIAL IV PRN (18:00)
[2022-09-05] MEDS: SODIUM CHLORIDE 0.9% 1,000 ML IV SCH (18:43)
[2022-09-05] MEDS: InsuLIN REG 1unit/0.01ml Soln (100units/ml) SC SCH (19:07)
[2022-09-05] MEDS: ACCU-CHEK COMFORT CURVE STRIP VI SCH (19:07)
[2022-09-05] MEDS: hydrALAZINE HCL 20 MG/ML VL IV PRN (22:34)
[2022-09-06] VITALS (7 sets, daily range): BP systolic 120–161; BP diastolic 59–73
[2022-09-06] MEDS: ACCU-CHEK COMFORT CURVE STRIP VI SCH ×5 (00:17→23:42)
[2022-09-06] MEDS ORDERED: ACETAMINOPHEN 325 MG TAB PO ONE (01:00)
[2022-09-06] MEDS: SODIUM CHLORIDE 0.9% 1,000 ML IV SCH ×4 (02:20→23:42)
[2022-09-06] MEDS: PANTOPRAZOLE 40mg/50ML NS AE 50 ML IV SCH ×2 (04:00→09:24)
[2022-09-06] MEDS: InsuLIN REG 1unit/0.01ml Soln (100units/ml) SC SCH ×5 (06:31→23:43)
[2022-09-06 07:11] LABS: Potassium 4.9 mmol/L (3.5-5.1)
[2022-09-06 07:13] LABS: Basophils # (auto) 0 10 ^3/uL (0-0.2); Basophils % (auto) 0.1 % (0.0-2.0); Eosinophils # (auto) 0.2 10 ^3/uL (0-0.8); Hemoglobin 14.8 g/dL (13.5-17.5); Lymphocytes % (auto) 43.4 % (10.0-50.0); Mean Corpuscular Hemoglobin 30.4 pg (28.0-32.0); Mean Corpuscular Hgb Conc. 35.3 g/dL (32.0-36.0); Mean Corpuscular Volume 86.2 fL (80.0-100.0); Monocytes # (auto) 0.5 10 ^3/uL (0-1.3); Neutrophils # (auto) 3.2 10 ^3/uL (1.6-8.6); Neutrophils % (auto) 46.5 % (37.0-80.0); Nucleated Red Blood Cells % 0.2 %; Red Blood Cells 4.87 10^6/uL (4.5-5.90); Red Cell Distribution Width 13.4 % (11.8-14.3); White Blood Cell 6.9 10^3/uL (4.4-10.8)
[2022-09-06 07:19] LABS: Albumin 3.4 g/dL (3.4-5.0); BUN/Creatinine Ratio 14.3; Bilirubin, Total 0.6 mg/dL (0.2-1.0); Calcium 8.7 mg/dL (8.5-10.1); Total Protein 6.7 g/dL (6.4-8.2)
[2022-09-06] MEDS: MORPHINE SULFATE INJ 2 MG/ml SYRG IV PRN ×3 (10:33→20:27)
[2022-09-06] MEDS: SUCRALFATE 1 GM/10 ML ORAL SUSP PO SCH ×2 (17:00→20:23)
[2022-09-06] MEDS: PANTOPRAZOLE 40 MG TAB PO SCH (20:23)
[2022-09-07] VITALS (8 sets, daily range): BP systolic 117–174; BP diastolic 53–81
[2022-09-07] MEDS: InsuLIN REG 1unit/0.01ml Soln (100units/ml) SC SCH ×4 (05:49→23:29)
[2022-09-07] MEDS: ACCU-CHEK COMFORT CURVE STRIP VI SCH ×4 (06:03→23:28)
[2022-09-07] MEDS: SUCRALFATE 1 GM/10 ML ORAL SUSP PO SCH ×4 (06:03→21:49)
[2022-09-07] MEDS: MORPHINE SULFATE INJ 2 MG/ml SYRG IV PRN (08:45)
[2022-09-07] MEDS ORDERED: PANT40TA2 PO (09:45)
[2022-09-07] MEDS ORDERED: SUCR1SUS5 PO (09:45)
[2022-09-07] MEDS: PANTOPRAZOLE 40 MG TAB PO SCH ×2 (10:24→21:50)
[2022-09-07 10:59] LABS: Urine Bacteria NONE SEEN /hpf (None Seen); Urine Blood Negative /uL (Negative); Urine WBC 1 /hpf (0 - 3)
[2022-09-07] MEDS ORDERED: HYDROcodone-ACET 5/325MG TAB PO ONE (11:15)
[2022-09-07] MEDS: SODIUM CHLORIDE 0.9% 1,000 ML IV SCH ×2 (11:40→20:00)
[2022-09-07] MEDS: hydrALAZINE HCL 20 MG/ML VL IV PRN (12:02)
[2022-09-07] MEDS ORDERED: hydrALAZINE HCL 20 MG/ML VL IV ONE (13:00)
[2022-09-07] MEDS ORDERED: KETOROLAC TROMETH 30 MG/ML 1ML VIAL IV ONE (14:30)
[2022-09-07] MEDS: HYDROcodone-ACET 5/325MG TAB PO PRN (21:48)
[2022-09-08] MEDS: SODIUM CHLORIDE 0.9% 1,000 ML IV SCH ×3 (00:27→23:40)
[2022-09-08 05:00] VITALS: BP 102/43
[2022-09-08] MEDS: InsuLIN REG 1unit/0.01ml Soln (100units/ml) SC SCH ×4 (06:00→23:28)
[2022-09-08] MEDS: ACCU-CHEK COMFORT CURVE STRIP VI SCH ×4 (06:01→23:25)
[2022-09-08] MEDS: SUCRALFATE 1 GM/10 ML ORAL SUSP PO SCH ×4 (06:01→21:03)
[2022-09-08] MEDS: PANTOPRAZOLE 40 MG TAB PO SCH ×2 (08:13→21:03)
[2022-09-08] MEDS: hydrALAZINE HCL 20 MG/ML VL IV PRN ×2 (08:14→23:32)
[2022-09-08 09:00] VITALS: BP 184/83
[2022-09-08] MEDS ORDERED: amLODIPine BESYLATE 5 MG TAB PO ONE (11:30)
[2022-09-08] MEDS ORDERED: LORazepam 2MG/ML-1ML VIAL IV PRN (12:45)
[2022-09-08 13:00] VITALS: BP_SYST 137; BP_SYST 151; BP_DIAS 60; BP_DIAS 77
[2022-09-08] MEDS: LISINOPRIL 10 MG TAB PO SCH (15:33)
[2022-09-08 16:57] VITALS: BP 109/67
[2022-09-08 22:00] VITALS: BP 151/62
[2022-09-08] MEDS: DOCUSATE SOD 100 MG CAP PO PRN (23:32)
[2022-09-09] MEDS: HYDROcodone-ACET 5/325MG TAB PO PRN (04:13)
[2022-09-09 04:51] VITALS: BP 129/54
[2022-09-09] MEDS: InsuLIN REG 1unit/0.01ml Soln (100units/ml) SC SCH (06:00)
[2022-09-09] MEDS: DOCUSATE SOD 100 MG CAP PO PRN (06:09)
[2022-09-09] MEDS: ACCU-CHEK COMFORT CURVE STRIP VI SCH (06:20)
[2022-09-09] MEDS: SUCRALFATE 1 GM/10 ML ORAL SUSP PO SCH (06:21)
[2022-09-09] MEDS: SODIUM CHLORIDE 0.9% 1,000 ML IV SCH (06:21)
[2022-09-09 09:00] VITALS: BP 120/66
[2022-09-09] MEDS: LISINOPRIL 10 MG TAB PO SCH (09:48)
[2022-09-09] MEDS: PANTOPRAZOLE 40 MG TAB PO SCH (09:48)
[2022-09-09] MEDS ORDERED: amLODIPine BESYLATE 5 MG TAB PO SCH (10:00)
[2022-09-09] MEDS ORDERED: DexAMETHasone INJECTION 10 MG in D5W 5% 50 ML IV SCH (10:00)
[2022-09-11 13:06] LABS: Folate (Folic Acid) 10.98 ng/mL (5.38-24)
== END 2022-09-09 13:30 | disposition home or self-care (01) | DRG 378 ==
LOC: ER 12:07 → OVERFLOW 18:12 → WEST WING 21:50
PROVIDERS: ADMIT Nurse Practitioner Family; ATTEND Internal Medicine
DX: K25.4 Chronic or unspecified gastric ulcer with hemorrhage (principal); E87.1 Hypo-osmolality and hyponatremia; K31.0 Acute dilatation of stomach; E87.20 Acidosis, unspecified; J98.11 Atelectasis; E78.5 Hyperlipidemia, unspecified; Z20.822 Contact with and (suspected) exposure to COVID-19; E86.0 Dehydration; I10 Essential (primary) hypertension; E11.9 Type 2 diabetes mellitus without complications; Z79.899 Other long term (current) drug therapy; Z83.3 Family history of diabetes mellitus; Z90.49 Acquired absence of other specified parts of digestive tract; Z95.1 Presence of aortocoronary bypass graft; Z79.4 Long term (current) use of insulin
CPT/HCPCS: 36415; 70450; 70551; 71250; 74176; 80053; 81001; 82607; 82746; 82962; 83605; 83615; 83690; 84443; 84484; 85025; 85610; 85652; 85730; 86141; 87040; 87081; 87426; 93005; 95819; 96361; 96365; C9113; G0378; J1100; J1815; J1885; J7060

== ENCOUNTER 2022-12-01 15:38 | Emergency (ER) | payer OTHER, MEDICAID ==
[~2022-12-01] VITALS: Ht 160 cm; Wt 65.0 kg
[~2022-12-01 15:38] MED LIST changes: -AMOX-277 PO; -AZIT250T8 PO; -CIPR500T4 PO; -GABA300C10 PO; -LISI20TA28 PO; -METR500T PO; +PANT40TA2 PO; +SUCR1SUS5 PO
[2022-12-01 18:00] LABS: Basophils # (auto) 0.1 10 ^3/uL (0-0.2); Basophils % (auto) 1.3 % (0.0-2.0); Eosinophils # (auto) 0.1 10 ^3/uL (0-0.8); Eosinophils % (auto) 0.8 % (0.0-7.0); Hematocrit 41.9 % (41.0-53.0); Hemoglobin 14.3 g/dL (13.5-17.5); Lymphocytes % (auto) 32.1 % (10.0-50.0); Mean Corpuscular Hemoglobin 29.6 pg (28.0-32.0); Monocytes # (auto) 0.6 10 ^3/uL (0-1.3); Monocytes % (auto) 6.2 % (0.0-12.0); Neutrophils # (auto) 5.5 10 ^3/uL (1.6-8.6); Neutrophils % (auto) 59.6 % (37.0-80.0); Nucleated Red Blood Cells % 0.3 %; Red Blood Cells 4.81 10^6/uL (4.5-5.90); Red Cell Distribution Width 13.2 % (11.8-14.3); White Blood Cell 9.2 10^3/uL (4.4-10.8)
[2022-12-01 18:07] LABS: Albumin 3.7 g/dL (3.4-5.0); BUN/Creatinine Ratio 29.2; Calcium 9.5 mg/dL (8.5-10.1); Magnesium 1.8 mg/dL (1.6-2.6); Potassium 4.7 mmol/L (3.5-5.1)
[2022-12-01 18:16] LABS: Bilirubin, Total 0.5 mg/dL (0.2-1.0); Total Protein 7.2 g/dL (6.4-8.2)
[2022-12-01] MEDS ORDERED: diphenhdrAMINE HCL 50 MG/1 ML VL IV ONE (19:45)
[2022-12-01] MEDS ORDERED: MAGNESIUM SULFATE 1GM/100ML 100 ML IV ONE (19:45)
[2022-12-01] MEDS ORDERED: HYDROcodone-ACET 5/325MG TAB PO ONE (19:45)
[2022-12-01] MEDS ORDERED: GABAPENTIN 100 MG CAP PO ONE (19:45)
[2022-12-01] MEDS ORDERED: METOCLOPRAMIDE HCL 5MG/ml INJ 2ml VIAL IV ONE (19:45)
[2022-12-02 00:35] VITALS: BP 143/75
== END 2022-12-02 00:35 | disposition home or self-care (01) ==
LOC: ER 15:40
DX: G44.009 Cluster headache syndrome, unspecified, not intractable (principal); E11.9 Type 2 diabetes mellitus without complications; E78.5 Hyperlipidemia, unspecified; I10 Essential (primary) hypertension; Z90.49 Acquired absence of other specified parts of digestive tract
CPT/HCPCS: 36415; 71045; 80053; 83735; 83880; 84484; 85025; 85652; 86141; 93005; 96365; 96375; 99285; J1200; J2765; J3475

== ENCOUNTER 2022-12-25 05:09 | Emergency (ER) | payer OTHER, MEDICAID | END 2022-12-25 05:43 | disposition left against medical advice (07) | LOC: ER 05:09 | DX: R10.9 Unspecified abdominal pain (principal); Z53.21 Procedure and treatment not carried out due to patient leaving prior to being seen by health care provider ==

== ENCOUNTER 2022-12-25 09:28 | Emergency (ER) | payer OTHER, MEDICAID ==
[~2022-12-25] VITALS: Ht 160 cm; Wt 62.8 kg
[2022-12-25 10:32] LABS: Basophils # (auto) 0 10 ^3/uL (0-0.2); Basophils % (auto) 0.6 % (0.0-2.0); Eosinophils # (auto) 0 10 ^3/uL (0-0.8); Eosinophils % (auto) 0.2 % (0.0-7.0); Hematocrit 39.4 % (41.0-53.0); Hemoglobin 13.9 g/dL (13.5-17.5); Lymphocytes % (auto) 24.1 % (10.0-50.0); Mean Corpuscular Hemoglobin 30.1 pg (28.0-32.0); Mean Corpuscular Hgb Conc. 35.3 g/dL (32.0-36.0); Mean Corpuscular Volume 85.2 fL (80.0-100.0); Monocytes # (auto) 0.4 10 ^3/uL (0-1.3); Monocytes % (auto) 5.1 % (0.0-12.0); Neutrophils # (auto) 5.7 10 ^3/uL (1.6-8.6); Nucleated Red Blood Cells % 0.1 %; Red Blood Cells 4.62 10^6/uL (4.5-5.90); Red Cell Distribution Width 13.5 % (11.8-14.3); White Blood Cell 8.1 10^3/uL (4.4-10.8)
[2022-12-25 11:00] LABS: Albumin 4.2 g/dL (3.4-5.0); Calcium 9.3 mg/dL (8.5-10.1); Potassium 5.1 mmol/L (3.5-5.1)
[2022-12-25 11:09] LABS: BUN/Creatinine Ratio 21.1; Bilirubin, Total 0.6 mg/dL (0.2-1.0); Total Protein 8.1 g/dL (6.4-8.2)
[2022-12-25 11:28] LABS: Urine Bacteria NONE SEEN /hpf (None Seen); Urine Blood Negative /uL (Negative); Urine Hyaline Cast FEW /lpf (0 - 2); Urine Specific Gravity 1.009 (1.001-1.035); Urine WBC 1 /hpf (0 - 3)
[2022-12-25 12:50] VITALS: BP 115/62
== END 2022-12-25 12:52 | disposition home or self-care (01) ==
LOC: ER 09:28
DX: R10.13 Epigastric pain (principal); E11.9 Type 2 diabetes mellitus without complications; E78.5 Hyperlipidemia, unspecified; I10 Essential (primary) hypertension; Z79.899 Other long term (current) drug therapy; Z90.49 Acquired absence of other specified parts of digestive tract
CPT/HCPCS: 36415; 70450; 74176; 80053; 81001; 82962; 83690; 85025

== ENCOUNTER 2023-03-10 09:36 | Emergency (ER) | payer OTHER, MEDICAID ==
[~2023-03-10] VITALS: Ht 160 cm; Wt 61.4 kg
[2023-03-10 10:20] LABS: Hematocrit 42.4 % (41.0-53.0); Hemoglobin 14.7 g/dL (13.5-17.5); Mean Corpuscular Hemoglobin 30.2 pg (28.0-32.0); Mean Corpuscular Hgb Conc. 34.6 g/dL (32.0-36.0); Mean Corpuscular Volume 87.2 fL (80.0-100.0); Red Blood Cells 4.86 10^6/uL (4.5-5.90); Red Cell Distribution Width 13.4 % (11.8-14.3); White Blood Cell 9.6 10^3/uL (4.4-10.8)
[2023-03-10 10:34] LABS: Albumin 3.6 g/dL (3.4-5.0); Calcium 9.1 mg/dL (8.5-10.1); Potassium 4.6 mmol/L (3.5-5.1)
[2023-03-10 10:38] LABS: BUN/Creatinine Ratio 19.6 (10.0-20.0); Bilirubin, Total 0.3 mg/dL (0.2-1.0); Total Protein 6.6 g/dL (6.4-8.2)
[2023-03-10 11:16] LABS: Basophils % (manual) 0 (0.0-2.0); Blast Cells 0; Eosinophils % (manual) 0 (0-7); Myelocytes % 0; Promyelocytes % 0; Reactive Lymphocytes 0
[2023-03-10] MEDS ORDERED: CYCL-837 PO (12:18)
[2023-03-10] MEDS ORDERED: PRED20TA2 PO (12:18)
[2023-03-10 12:42] VITALS: BP 134/72
[2023-03-10 13:29] LABS: Band Neutrophils % (manual) 2; Lymphocytes % (manual) 30 (10.0-50.0); Metamyelocytes % 2; Monocytes % (manual) 6 (0-12)
== END 2023-03-10 12:51 | disposition home or self-care (01) ==
LOC: ER 09:36
DX: M25.512 Pain in left shoulder (principal); R51.9 Headache, unspecified; R20.0 Anesthesia of skin; R55 Syncope and collapse; E11.9 Type 2 diabetes mellitus without complications; E78.5 Hyperlipidemia, unspecified; I10 Essential (primary) hypertension; Z90.49 Acquired absence of other specified parts of digestive tract
CPT/HCPCS: 36415; 70450; 72125; 80053; 84484; 85007; 85027; 93005

== ENCOUNTER 2023-05-03 06:04 | Emergency (ER) | payer OTHER, MEDICAID ==
[~2023-05-03] VITALS: Ht 160 cm; Wt 65.5 kg
[~2023-05-03 06:04] MED LIST changes: -ACET-1158 PO; +ACET500T58 PO; +CYCL-837 PO; -LISI40TA11 PO; +LISI40TA16 PO; +PRED20TA2 PO
[2023-05-03 06:32] LABS: Basophils # (auto) 0.1 10 ^3/uL (0-0.2); Basophils % (auto) 0.6 % (0.0-2.0); Eosinophils # (auto) 0.1 10 ^3/uL (0-0.8); Eosinophils % (auto) 1.2 % (0.0-7.0); Hematocrit 42.7 % (41.0-53.0); Hemoglobin 14.6 g/dL (13.5-17.5); Lymphocytes # (auto) 2.7 10 ^3/uL (0.4-5.4); Lymphocytes % (auto) 31.3 % (10.0-50.0); Mean Corpuscular Hgb Conc. 34.1 g/dL (32.0-36.0); Monocytes # (auto) 0.6 10 ^3/uL (0-1.3); Monocytes % (auto) 6.9 % (0.0-12.0); Neutrophils # (auto) 5.2 10 ^3/uL (1.6-8.6); Nucleated Red Blood Cells % 0.1 %; Red Blood Cells 4.85 10^6/uL (4.5-5.90); Red Cell Distribution Width 13.3 % (11.8-14.3); White Blood Cell 8.7 10^3/uL (4.4-10.8)
[2023-05-03 07:31] LABS: Albumin 3.6 g/dL (3.4-5.0); Anion Gap 13 (5-15); Blood Urea Nitrogen 13 mg/dL (7-18); Calcium 8.4 mg/dL (8.5-10.1); Carbon Dioxide 16 mmol/L (21-32); Chloride 108 mmol/L (98-107); Glucose 160 mg/dL (74-106); Potassium 4.6 mmol/L (3.5-5.1); Sodium 137 mmol/L (136-145)
[2023-05-03 07:34] LABS: Alanine Aminotransferase 34 U/L (16-61); Alkaline Phosphatase 102 U/L (45-117); Aspartate Aminotransferase 25 U/L (15-37); BUN/Creatinine Ratio 14.6 (10.0-20.0); Bilirubin, Total 0.2 mg/dL (0.2-1.0); GFR African American 110 mL/min; GFR Non-African American 91 mL/min; Total Protein 6.9 g/dL (6.4-8.2)
[2023-05-03] MEDS ORDERED: CEPH250C PO (07:58)
[2023-05-03 08:05] VITALS: BP 174/73; PULSE 80; RESP 18; TEMP 98; O2SAT 98
== END 2023-05-03 08:16 | disposition home or self-care (01) ==
LOC: ER 06:04
DX: K02.9 Dental caries, unspecified (principal); E11.9 Type 2 diabetes mellitus without complications; I10 Essential (primary) hypertension; E78.5 Hyperlipidemia, unspecified; Z90.49 Acquired absence of other specified parts of digestive tract; Z88.6 Allergy status to analgesic agent
CPT/HCPCS: 36415; 70450; 80053; 84484; 85025; 93005

== ENCOUNTER 2023-06-25 11:17 | Emergency (ER) | payer OTHER, MEDICAID ==
[~2023-06-25] VITALS: Ht 160 cm; Wt 64.8 kg
[~2023-06-25 11:17] MED LIST changes: +CEPH250C PO; +FLUT1SPR5; +LEVO500T91 PO; +METH4PAK PO
[2023-06-25 12:27] LABS: Basophils # (auto) 0.1 10 ^3/uL (0-0.2); Basophils % (auto) 0.9 % (0.0-2.0); Eosinophils # (auto) 0.1 10 ^3/uL (0-0.8); Eosinophils % (auto) 1.2 % (0.0-7.0); Hematocrit 43.6 % (41.0-53.0); Hemoglobin 14.8 g/dL (13.5-17.5); Lymphocytes # (auto) 3.1 10 ^3/uL (0.4-5.4); Lymphocytes % (auto) 39.5 % (10.0-50.0); Mean Corpuscular Hemoglobin 29.5 pg (28.0-32.0); Mean Corpuscular Volume 86.7 fL (80.0-100.0); Monocytes # (auto) 0.5 10 ^3/uL (0-1.3); Monocytes % (auto) 5.9 % (0.0-12.0); Neutrophils # (auto) 4.1 10 ^3/uL (1.6-8.6); Neutrophils % (auto) 52.5 % (37.0-80.0); Nucleated Red Blood Cells % 0.3 %; Red Blood Cells 5.03 10^6/uL (4.5-5.90); Red Cell Distribution Width 13.8 % (11.8-14.3); White Blood Cell 7.8 10^3/uL (4.4-10.8)
[2023-06-25 12:38] LABS: Alanine Aminotransferase 24 U/L (7-40); Alkaline Phosphatase 113 U/L (46-116); Anion Gap 4.5 (5-15); Aspartate Aminotransferase 12 U/L (13-40); BUN/Creatinine Ratio 16.5 (10.0-20.0); Blood Urea Nitrogen 15 mg/dL (9-23); Calcium 9.2 mg/dL (8.5-10.1); Carbon Dioxide 27.5 mmol/L (20-30); Chloride 106 mmol/L (98-107); Glucose 131 mg/dL (74-106); Potassium 4.3 mmol/L (3.5-5.1); Sodium 138 mmol/L (136-145)
[2023-06-25 12:39] LABS: Albumin 4.4 g/dL (3.2-4.8); Bilirubin, Total 0.5 mg/dL (0.2-1.0)
[2023-06-25 21:24] VITALS: BP 160/77; PULSE 63; RESP 18; TEMP 98; O2SAT 98
== END 2023-06-25 21:28 | disposition home or self-care (01) ==
LOC: ER 11:17
DX: S09.90XA Unspecified injury of head, initial encounter (principal); M54.2 Cervicalgia; I10 Essential (primary) hypertension; E11.9 Type 2 diabetes mellitus without complications; E78.5 Hyperlipidemia, unspecified; Z90.49 Acquired absence of other specified parts of digestive tract; W18.39XA Other fall on same level, initial encounter; Y93.89 Activity, other specified; Y92.89 Other specified places as the place of occurrence of the external cause; Y99.8 Other external cause status
CPT/HCPCS: 36415; 70450; 72125; 80053; 84484; 85025

== ENCOUNTER 2023-08-06 19:41 | Inpatient (IN) | payer OTHER, MEDICAID ==
[~2023-08-06] VITALS: Ht 160 cm; Wt 69.0 kg
[2023-08-06] MEDS ORDERED: LABETALOL HCL 5 MG/ML 4ML SYRINGE IV ONE ×2 (20:15→22:00)
[2023-08-06 21:28] LABS: Basophils # (auto) 0.1 10 ^3/uL (0-0.2); Basophils % (auto) 1.7 % (0.0-2.0); Eosinophils # (auto) 0.1 10 ^3/uL (0-0.8); Eosinophils % (auto) 1.8 % (0.0-7.0); Hematocrit 42.7 % (41.0-53.0); Hemoglobin 14.8 g/dL (13.5-17.5); Lymphocytes # (auto) 3.1 10 ^3/uL (0.4-5.4); Lymphocytes % (auto) 36.8 % (10.0-50.0); Mean Corpuscular Hemoglobin 30.4 pg (28.0-32.0); Mean Corpuscular Hgb Conc. 34.8 g/dL (32.0-36.0); Mean Corpuscular Volume 87.5 fL (80.0-100.0); Monocytes # (auto) 0.6 10 ^3/uL (0-1.3); Neutrophils # (auto) 4.4 10 ^3/uL (1.6-8.6); Neutrophils % (auto) 52.7 % (37.0-80.0); Nucleated Red Blood Cells % 0.1 %; Red Blood Cells 4.88 10^6/uL (4.5-5.90); Red Cell Distribution Width 13.4 % (11.8-14.3); White Blood Cell 8.3 10^3/uL (4.4-10.8)
[2023-08-06 21:36] VITALS: PULSE 61; RESP 26; O2SAT 95
[2023-08-06 21:43] LABS: Alanine Aminotransferase 14 U/L (7-40); Albumin 4.1 g/dL (3.2-4.8); Alkaline Phosphatase 129 U/L (46-116); Anion Gap 6 (5-15); Aspartate Aminotransferase 9 U/L (13-40); BUN/Creatinine Ratio 14.5 (10.0-20.0); Bilirubin, Total 0.3 mg/dL (0.2-1.0); Blood Urea Nitrogen 18 mg/dL (9-23); Calcium 9.1 mg/dL (8.7-10.4); Carbon Dioxide 23 mmol/L (20-30); Chloride 103 mmol/L (98-107); Glucose 268 mg/dL (74-106); Magnesium 1.9 mg/dL (1.6-2.6); Potassium 4.4 mmol/L (3.5-5.1); Sodium 132 mmol/L (136-145); Total Protein 6.9 g/dL (5.7-8.2)
[2023-08-06 21:44] LABS: INR 0.92 (0.9-1.15); Partial Thromboplastin Time 27.6 SEC (24.5-34.5); Prothrombin Time 9.7 sec (9.3-11.8)
[2023-08-06] MEDS ORDERED: MORPHINE SULFATE INJ 2 MG/ml SYRG IV PRN (22:30)
[2023-08-06] MEDS ORDERED: DEXTROSE (50%) 50ML SYRG IV PRN (22:30)
[2023-08-06] MEDS ORDERED: hydrALAZINE HCL 20 MG/ML VL IV PRN (22:30)
[2023-08-06] MEDS ORDERED: ONDANSETRON HCL 4 MG/2 ML VIAL IV PRN (22:30)
[2023-08-06] MEDS ORDERED: NITROGLYCERIN 0.4 MG SL TAB SL PRN (22:30)
[2023-08-07] VITALS (7 sets, daily range): BP systolic 100–173; BP diastolic 56–82; PULSE 61–73; RESP 16–20; TEMP 97.4–98.1; O2SAT 94–97
[2023-08-07] MEDS ORDERED: CARB200T4 PO (04:17)
[2023-08-07] MEDS ORDERED: PNEUMOCOCCAL VACC POLYS 25 MCG/0.5 ML VIAL IM ONE (05:15)
[2023-08-07] MEDS ORDERED: INFLUENZA QUAD 2023-2024 0.5 ML SYRG IM ONE (05:15)
[2023-08-07] MEDS: ACCU-CHEK COMFORT CURVE STRIP VI SCH ×4 (06:31→22:10)
[2023-08-07 06:33] LABS: Basophils # (auto) 0.1 10 ^3/uL (0-0.2); Basophils % (auto) 1.2 % (0.0-2.0); Eosinophils # (auto) 0.2 10 ^3/uL (0-0.8); Hematocrit 41.1 % (41.0-53.0); Hemoglobin 14.4 g/dL (13.5-17.5); Lymphocytes # (auto) 2.6 10 ^3/uL (0.4-5.4); Lymphocytes % (auto) 33.4 % (10.0-50.0); Mean Corpuscular Hemoglobin 30.5 pg (28.0-32.0); Mean Corpuscular Hgb Conc. 35.1 g/dL (32.0-36.0); Mean Corpuscular Volume 86.9 fL (80.0-100.0); Monocytes # (auto) 0.5 10 ^3/uL (0-1.3); Neutrophils # (auto) 4.5 10 ^3/uL (1.6-8.6); Neutrophils % (auto) 57.4 % (37.0-80.0); Nucleated Red Blood Cells % 0.2 %; Red Blood Cells 4.73 10^6/uL (4.5-5.90); Red Cell Distribution Width 13.6 % (11.8-14.3); White Blood Cell 7.9 10^3/uL (4.4-10.8)
[2023-08-07] MEDS: InsuLIN REG 1unit/0.01ml Soln (100units/ml) SC SCH ×4 (06:35→22:31)
[2023-08-07 06:44] LABS: Alanine Aminotransferase 13 U/L (7-40); Albumin 3.9 g/dL (3.2-4.8); Alkaline Phosphatase 111 U/L (46-116); Anion Gap 7 (5-15); Aspartate Aminotransferase 11 U/L (13-40); BUN/Creatinine Ratio 14.6 (10.0-20.0); Blood Urea Nitrogen 15 mg/dL (9-23); Carbon Dioxide 25 mmol/L (20-30); Chloride 104 mmol/L (98-107); Glucose 236 mg/dL (74-106); Potassium 4.6 mmol/L (3.5-5.1); Sodium 136 mmol/L (136-145)
[2023-08-07 06:45] LABS: Bilirubin, Total 0.4 mg/dL (0.2-1.0); Total Protein 6.4 g/dL (5.7-8.2)
[2023-08-07] MEDS: LISINOPRIL 20 MG TAB PO SCH (09:41)
[2023-08-07] MEDS: ENOXAPARIN SOD 40 MG/0.4 ML SYRINGE SC SCH (09:41)
[2023-08-07] MEDS: CLOPIDOGREL BISULFATE 75 MG TAB PO SCH (09:41)
[2023-08-07] MEDS ORDERED: ASPirin 81 mg TAB PO SCH (10:00)
[2023-08-07] MEDS: NIFEdipine ER 30 MG TAB PO SCH ×2 (13:22→22:10)
[2023-08-07 15:13] LABS: Triglycerides 454 mg/dL (< 150)
[2023-08-07 15:15] LABS: Cholesterol 234 mg/dL (< 200); HDL Cholesterol 41 mg/dL (40-59)
[2023-08-07] MEDS ORDERED: ATORVASTATIN 20 MG TAB PO SCH (22:00)
[2023-08-07] MEDS: ATORVASTATIN 20 MG TAB PO SCH ×2 (22:00→22:09)
[2023-08-08] VITALS (7 sets, daily range): BP systolic 108–160; BP diastolic 60–75; PULSE 60–78; RESP 16–21; TEMP 97.6–98.3; O2SAT 93–98
[2023-08-08] MEDS: ACCU-CHEK COMFORT CURVE STRIP VI SCH ×4 (05:56→22:00)
[2023-08-08] MEDS: InsuLIN REG 1unit/0.01ml Soln (100units/ml) SC SCH ×4 (05:56→22:51)
[2023-08-08 09:04] LABS: Hepatitis B Surface Antigen Negative (Negative)
[2023-08-08 09:25] LABS: Hepatitis C Antibody Negative (Negative)
[2023-08-08] MEDS: ENOXAPARIN SOD 40 MG/0.4 ML SYRINGE SC SCH (10:07)
[2023-08-08] MEDS: ASPirin 81 mg TAB PO SCH (10:07)
[2023-08-08] MEDS: CLOPIDOGREL BISULFATE 75 MG TAB PO SCH (10:07)
[2023-08-08] MEDS: NIFEdipine ER 30 MG TAB PO SCH ×2 (10:08→22:52)
[2023-08-08] MEDS: LISINOPRIL 20 MG TAB PO SCH (10:08)
[2023-08-08] MEDS: ACETAMINOPHEN 325 MG TAB PO PRN (22:52)
[2023-08-08] MEDS: ATORVASTATIN 20 MG TAB PO SCH (22:52)
[2023-08-09] VITALS (7 sets, daily range): BP systolic 116–145; BP diastolic 61–77; PULSE 60–76; RESP 16–18; TEMP 97–97.8; O2SAT 94–98
[2023-08-09] MEDS: ACCU-CHEK COMFORT CURVE STRIP VI SCH ×4 (07:13→22:11)
[2023-08-09] MEDS: InsuLIN REG 1unit/0.01ml Soln (100units/ml) SC SCH ×4 (07:13→22:11)
[2023-08-09] MEDS ORDERED: ATO40T PO (09:46)
[2023-08-09] MEDS ORDERED: NIFE1TAB30 PO (09:46)
[2023-08-09] MEDS: CLOPIDOGREL BISULFATE 75 MG TAB PO SCH (10:42)
[2023-08-09] MEDS: ASPirin 81 mg TAB PO SCH (10:42)
[2023-08-09] MEDS: LISINOPRIL 20 MG TAB PO SCH (10:55)
[2023-08-09] MEDS: NIFEdipine ER 30 MG TAB PO SCH ×2 (10:56→22:06)
[2023-08-09] MEDS: ENOXAPARIN SOD 40 MG/0.4 ML SYRINGE SC SCH (10:56)
[2023-08-09] MEDS ORDERED: IOHEXOL 350 MG/ML 100ML IJ ONE (15:48)
[2023-08-09] MEDS: ATORVASTATIN 20 MG TAB PO SCH (22:06)
[2023-08-10] VITALS (7 sets, daily range): BP systolic 115–177; BP diastolic 56–74; PULSE 58–78; RESP 16–19; TEMP 97.2–97.9; O2SAT 95–97
[2023-08-10] MEDS: ACCU-CHEK COMFORT CURVE STRIP VI SCH ×4 (06:17→21:39)
[2023-08-10] MEDS: InsuLIN REG 1unit/0.01ml Soln (100units/ml) SC SCH ×4 (06:22→21:44)
[2023-08-10] MEDS: LISINOPRIL 20 MG TAB PO SCH (09:50)
[2023-08-10] MEDS: NIFEdipine ER 30 MG TAB PO SCH ×2 (09:50→21:42)
[2023-08-10] MEDS: ACETAMINOPHEN 325 MG TAB PO PRN (19:49)
[2023-08-10] MEDS: ATORVASTATIN 20 MG TAB PO SCH (21:39)
[2023-08-11] VITALS (8 sets, daily range): BP systolic 100–116; BP diastolic 52–59; PULSE 61–67; RESP 16–18; TEMP 97.2–98.2; O2SAT 95–97
[2023-08-11] MEDS: ACCU-CHEK COMFORT CURVE STRIP VI SCH ×4 (05:57→22:03)
[2023-08-11] MEDS: InsuLIN REG 1unit/0.01ml Soln (100units/ml) SC SCH ×4 (06:03→22:22)
[2023-08-11] MEDS: NIFEdipine ER 30 MG TAB PO SCH ×2 (09:30→22:00)
[2023-08-11] MEDS: LISINOPRIL 20 MG TAB PO SCH (09:30)
[2023-08-11] MEDS: ACETAMINOPHEN 325 MG TAB PO PRN (17:58)
[2023-08-11] MEDS: ATORVASTATIN 20 MG TAB PO SCH (22:02)
[2023-08-12 02:27] VITALS: BP 105/59; PULSE 61; RESP 18; O2SAT 95
[2023-08-12 06:07] VITALS: BP 124/54; PULSE 66; RESP 18; TEMP 97.8; O2SAT 96
[2023-08-12] MEDS: InsuLIN REG 1unit/0.01ml Soln (100units/ml) SC SCH ×2 (06:33→11:42)
[2023-08-12] MEDS: ACCU-CHEK COMFORT CURVE STRIP VI SCH ×2 (06:34→11:41)
[2023-08-12 08:00] VITALS: PULSE 60
[2023-08-12 09:00] VITALS: BP 112/70; PULSE 75; RESP 20; TEMP 98.3; O2SAT 97
[2023-08-12] MEDS: LISINOPRIL 20 MG TAB PO SCH (09:13)
[2023-08-12] MEDS: NIFEdipine ER 30 MG TAB PO SCH (09:13)
[2023-08-12 12:48] VITALS: BP 129/65; PULSE 80; RESP 21; TEMP 98; O2SAT 97
[2023-08-12 12:51] VITALS: BP 112/70; PULSE 59; TEMP 36.7
== END 2023-08-12 14:30 | disposition home or self-care (01) | DRG 77 ==
LOC: ER 19:43 → TELE 22:26 → TELE-CENTR 08-07 03:55
PROVIDERS: ADMIT Nurse Practitioner; ATTEND Internal Medicine Nephrology
DX: I67.4 Hypertensive encephalopathy (principal); I21.A1 Myocardial infarction type 2; G45.9 Transient cerebral ischemic attack, unspecified; I10 Essential (primary) hypertension; E78.00 Pure hypercholesterolemia, unspecified; I16.0 Hypertensive urgency; Z79.82 Long term (current) use of aspirin; Z83.3 Family history of diabetes mellitus; Z87.891 Personal history of nicotine dependence; Z90.49 Acquired absence of other specified parts of digestive tract; Z91.148 Patient's other noncompliance with medication regimen for other reason; E11.65 Type 2 diabetes mellitus with hyperglycemia
CPT/HCPCS: 36415; 70450; 70498; 70551; 80053; 80061; 82962; 83036; 83735; 83880; 84439; 84443; 84484; 85025; 85610; 85730; 86803; 87340; 90686; 93005; 93306; 93886; G0378; J1815; J3490

== ENCOUNTER 2023-10-16 07:14 | Emergency (ER) | payer OTHER, MEDICAID ==
[~2023-10-16] VITALS: Ht 160 cm; Wt 65.2 kg
[~2023-10-16 07:14] MED LIST changes: +ATO40T PO; +CARB200T4 PO; +NIFE1TAB30 PO
[2023-10-16 08:32] VITALS: BP 137/76; PULSE 68; RESP 16; TEMP 97.6; O2SAT 99
[2023-10-16] MEDS ORDERED: BENZ100C97 PO (08:52)
[2023-10-16] MEDS ORDERED: AUG875T PO (08:52)
[2023-10-16] MEDS ORDERED: LIDO2SOL26 MT (08:52)
== END 2023-10-16 09:07 | disposition home or self-care (01) ==
LOC: ER 07:14
DX: R05.9 Cough, unspecified (principal); R07.0 Pain in throat; I10 Essential (primary) hypertension; E11.9 Type 2 diabetes mellitus without complications; E78.5 Hyperlipidemia, unspecified; Z90.49 Acquired absence of other specified parts of digestive tract; Z79.899 Other long term (current) drug therapy

== ENCOUNTER 2024-02-10 07:41 | Emergency (ER) | payer OTHER, MEDICAID ==
[~2024-02-10] VITALS: Ht 167.6 cm; Wt 64.7 kg
[~2024-02-10 07:41] MED LIST changes: -ATO40T PO; +ATOR-507 PO; +AUG875T PO; +BENZ100C97 PO; +LIDO2SOL26 MT
[2024-02-10 10:22] LABS: Basophils # (auto) 0.1 10 ^3/uL (0-0.2); Eosinophils # (auto) 0.1 10 ^3/uL (0-0.8); Eosinophils % (auto) 1.4 % (0.0-7.0); Hematocrit 47.2 % (41.0-53.0); Hemoglobin 16.2 g/dL (13.5-17.5); Lymphocytes # (auto) 2.5 10 ^3/uL (0.4-5.4); Lymphocytes % (auto) 32.5 % (10.0-50.0); Mean Corpuscular Hemoglobin 29.8 pg (28.0-32.0); Mean Corpuscular Hgb Conc. 34.3 g/dL (32.0-36.0); Monocytes # (auto) 0.4 10 ^3/uL (0-1.3); Monocytes % (auto) 5.2 % (0.0-12.0); Neutrophils # (auto) 4.6 10 ^3/uL (1.6-8.6); Neutrophils % (auto) 59.9 % (37.0-80.0); Nucleated Red Blood Cells % 0.1 %; Red Blood Cells 5.42 10^6/uL (4.5-5.90); Red Cell Distribution Width 13.6 % (11.8-14.3); White Blood Cell 7.7 10^3/uL (4.4-10.8)
[2024-02-10 10:34] LABS: Chloride 104 mmol/L (98-107); Potassium 4.2 mmol/L (3.5-5.1); Sodium 135 mmol/L (136-145)
[2024-02-10 10:35] LABS: Anion Gap 7 (5-15); Carbon Dioxide 24 mmol/L (20-30)
[2024-02-10 10:40] LABS: BUN/Creatinine Ratio 10.8 (10.0-20.0); Blood Urea Nitrogen 9 mg/dL (9-23); Glucose 213 mg/dL (74-106)
[2024-02-10 11:01] VITALS: BP 136/79; PULSE 71; RESP 18; TEMP 98; O2SAT 98
[2024-02-10] MEDS ORDERED: BENZ100C97 PO (11:16)
[2024-02-10] MEDS ORDERED: AUG875T PO (11:16)
[2024-02-10] MEDS ORDERED: PROM1SOL4 PO (11:16)
== END 2024-02-10 11:28 | disposition home or self-care (01) ==
LOC: ER 07:41
DX: J40 Bronchitis, not specified as acute or chronic (principal); E11.9 Type 2 diabetes mellitus without complications; E78.5 Hyperlipidemia, unspecified; I10 Essential (primary) hypertension; Z90.49 Acquired absence of other specified parts of digestive tract
CPT/HCPCS: 36415; 71046; 80048; 83880; 85025

== ENCOUNTER 2024-04-12 18:02 | Emergency (ER) | payer OTHER, MEDICAID ==
[~2024-04-12 18:02] MED LIST changes: +PROM1SOL4 PO
[2024-04-12] MEDS ORDERED: HYDR-4902 PO (22:17)
[2024-04-12] MEDS: HYDROcodone-ACET 5/325MG TAB PO ONE (22:22)
[2024-04-12 22:57] VITALS: BP 143/78; PULSE 77; RESP 18; TEMP 98; O2SAT 97
== END 2024-04-12 22:58 | disposition home or self-care (01) ==
LOC: ER 18:02
DX: M25.562 Pain in left knee (principal); M25.561 Pain in right knee; E11.40 Type 2 diabetes mellitus with diabetic neuropathy, unspecified; E78.5 Hyperlipidemia, unspecified; I10 Essential (primary) hypertension; Z90.49 Acquired absence of other specified parts of digestive tract; Z79.899 Other long term (current) drug therapy
CPT/HCPCS: 73562; 93970

== ENCOUNTER 2024-05-09 12:29 | Inpatient (IN) | payer OTHER, MEDICAID ==
[~2024-05-09] VITALS: Ht 160 cm; Wt 69.0 kg
[2024-05-09] MEDS: ASPirin 325 MG TAB PO ONE (13:48)
[2024-05-09 13:57] VITALS: PULSE 70
[2024-05-09 14:05] LABS: Basophils # (auto) 0.1 10 ^3/uL (0-0.2); Basophils % (auto) 0.8 % (0.0-2.0); Eosinophils # (auto) 0.1 10 ^3/uL (0-0.8); Eosinophils % (auto) 1.2 % (0.0-7.0); Hematocrit 42.9 % (41.0-53.0); Hemoglobin 15.1 g/dL (13.5-17.5); Lymphocytes # (auto) 3.1 10 ^3/uL (0.4-5.4); Lymphocytes % (auto) 35.2 % (10.0-50.0); Mean Corpuscular Hemoglobin 30.5 pg (28.0-32.0); Mean Corpuscular Hgb Conc. 35.1 g/dL (32.0-36.0); Mean Corpuscular Volume 86.9 fL (80.0-100.0); Monocytes # (auto) 0.5 10 ^3/uL (0-1.3); Monocytes % (auto) 5.7 % (0.0-12.0); Neutrophils % (auto) 57.1 % (37.0-80.0); Nucleated Red Blood Cells % 0.1 %; Red Blood Cells 4.94 10^6/uL (4.5-5.90); Red Cell Distribution Width 13.7 % (11.8-14.3); White Blood Cell 8.8 10^3/uL (4.4-10.8)
[2024-05-09 14:21] LABS: Alanine Aminotransferase 19 U/L (7-40); Albumin 3.7 g/dL (3.2-4.8); Alkaline Phosphatase 135 U/L (46-116); Anion Gap 6 (5-15); Aspartate Aminotransferase 12 U/L (13-40); BUN/Creatinine Ratio 19.5 (10.0-20.0); Bilirubin, Total 0.3 mg/dL (0.2-1.0); Blood Urea Nitrogen 23 mg/dL (9-23); Calcium 9.4 mg/dL (8.7-10.4); Carbon Dioxide 25 mmol/L (20-30); Chloride 103 mmol/L (98-107); Potassium 4.7 mmol/L (3.5-5.1); Sodium 134 mmol/L (136-145); Total Protein 6.4 g/dL (5.7-8.2)
[2024-05-09 14:28] LABS: Glucose 427 mg/dL (74-106)
[2024-05-09] MEDS: InsuLIN REG 1unit/0.01ml Soln (100units/ml) IV STA (14:57)
[2024-05-09] MEDS: SODIUM CHLORIDE 0.9% 1,000 ML IV ONE (15:00)
[2024-05-09 16:05] LABS: Urine Bacteria None Seen /hpf (None Seen)
[2024-05-09 16:23] LABS: Urine Blood Negative /uL (Negative); Urine Clarity Clear (Clear); Urine Color Light-Yellow (Yellow); Urine Protein, UAD 2+ (Negative); Urine Specific Gravity 1.024 (1.001-1.035); Urine Urobilinogen Normal (Negative); Urine WBC <1 /hpf (0 - 3)
[2024-05-09] MEDS ORDERED: ACETAMINOPHEN 325 MG TAB PO PRN (17:15)
[2024-05-09] MEDS ORDERED: NITROGLYCERIN 0.4 MG SL TAB SL PRN ×2 (17:15)
[2024-05-09] MEDS ORDERED: MORPHINE SULFATE INJ 2 MG/ml SYRG IV PRN (17:15)
[2024-05-09] MEDS ORDERED: ONDANSETRON HCL 4 MG/2 ML VIAL IV PRN (17:15)
[2024-05-09] MEDS ORDERED: DEXTROSE (50%) 50ML SYRG IV PRN (17:15)
[2024-05-09 17:56] LABS: INR 0.93 (0.9-1.15); Prothrombin Time 9.9 sec (9.3-11.8)
[2024-05-09 18:40] VITALS: BP 153/77; PULSE 61; RESP 20; TEMP 98.1; O2SAT 94
[2024-05-09] MEDS: SUCRALFATE 1 GM/10 ML ORAL SUSP PO SCH (18:45)
[2024-05-09] MEDS: ENOXAPARIN SOD 60 MG/0.6 ML SYRINGE SC SCH (18:47)
[2024-05-09] MEDS: ACCU-CHEK COMFORT CURVE STRIP VI SCH (18:52)
[2024-05-09] MEDS: InsuLIN REG 1unit/0.01ml Soln (100units/ml) SC SCH (18:53)
[2024-05-09 19:57] VITALS: PULSE 61; RESP 19; O2SAT 94
[2024-05-09 20:00] VITALS: PULSE 60; PULSE 61; RESP 19; O2SAT 94
[2024-05-09 21:00] VITALS: BP 141/76; PULSE 61; RESP 17; TEMP 97.5; O2SAT 95
[2024-05-09] MEDS: PANTOPRAZOLE 40 MG TAB PO SCH (22:12)
[2024-05-09] MEDS: carBAMazepine 200 MG TAB PO SCH (22:12)
[2024-05-09] MEDS: ATORVASTATIN 20 MG TAB PO SCH (22:13)
[2024-05-09] MEDS: NIFEdipine ER 30 MG TAB PO SCH (22:18)
[2024-05-10 05:00] VITALS: BP 133/66; PULSE 61; RESP 18; TEMP 97.6; O2SAT 98
[2024-05-10 05:56] LABS: Basophils # (auto) 0.1 10 ^3/uL (0-0.2); Eosinophils # (auto) 0.1 10 ^3/uL (0-0.8); Eosinophils % (auto) 1.1 % (0.0-7.0); Hematocrit 41.9 % (41.0-53.0); Hemoglobin 14.7 g/dL (13.5-17.5); Lymphocytes % (auto) 20.9 % (10.0-50.0); Mean Corpuscular Hemoglobin 30.2 pg (28.0-32.0); Mean Corpuscular Volume 86.4 fL (80.0-100.0); Monocytes # (auto) 0.6 10 ^3/uL (0-1.3); Monocytes % (auto) 6.5 % (0.0-12.0); Neutrophils # (auto) 6.9 10 ^3/uL (1.6-8.6); Neutrophils % (auto) 70.5 % (37.0-80.0); Red Blood Cells 4.85 10^6/uL (4.5-5.90); Red Cell Distribution Width 13.7 % (11.8-14.3); White Blood Cell 9.8 10^3/uL (4.4-10.8)
[2024-05-10 06:11] LABS: Alanine Aminotransferase 15 U/L (7-40); Albumin 3.6 g/dL (3.2-4.8); Alkaline Phosphatase 111 U/L (46-116); Anion Gap 8 (5-15); Aspartate Aminotransferase 13 U/L (13-40); BUN/Creatinine Ratio 14.8 (10.0-20.0); Bilirubin, Total 0.3 mg/dL (0.2-1.0); Blood Urea Nitrogen 13 mg/dL (9-23); Calcium 8.8 mg/dL (8.5-10.1); Carbon Dioxide 24 mmol/L (20-30); Chloride 108 mmol/L (98-107); Cholesterol 230 mg/dL (< 200); HDL Cholesterol 39 mg/dL (40-59); LDL Cholesterol 124 mg/dL (< 100); Potassium 3.7 mmol/L (3.5-5.1); Sodium 140 mmol/L (136-145); Total Protein 6.1 g/dL (5.7-8.2); Triglycerides 394 mg/dL (< 150)
[2024-05-10 06:47] LABS: Glucose 110 mg/dL (74-106)
[2024-05-10 08:00] VITALS: BP 139/65; PULSE 64; PULSE 66; RESP 16; RESP 18; TEMP 98.3; O2SAT 94
[2024-05-10] MEDS: CLOPIDOGREL BISULFATE 75 MG TAB PO SCH (09:43)
[2024-05-10] MEDS: DOCUSATE SOD 100 MG CAP PO SCH (09:43)
[2024-05-10] MEDS: ASPirin 81 mg TAB PO SCH (09:44)
[2024-05-10] MEDS: LISINOPRIL 20 MG TAB PO SCH (09:44)
[2024-05-10] MEDS ORDERED: amLODIPine BESYLATE 5 MG TAB PO SCH (10:00)
[2024-05-10 13:00] VITALS: BP 143/72; PULSE 63; RESP 16; TEMP 98; O2SAT 96
[2024-05-10 17:18] VITALS: BP 160/70; PULSE 60; RESP 16; TEMP 97.9; O2SAT 97
[2024-05-10 20:00] VITALS: PULSE 59; PULSE 73; RESP 19; O2SAT 94
[2024-05-10 22:00] VITALS: BP 123/64; PULSE 59; RESP 20; TEMP 97.9; O2SAT 96
[2024-05-11] VITALS (8 sets, daily range): BP systolic 121–154; BP diastolic 62–76; PULSE 58–71; RESP 17–20; TEMP 97.6–98.3; O2SAT 94–100
[2024-05-11 07:59] LABS: Basophils # (auto) 0.1 10 ^3/uL (0-0.2); Basophils % (auto) 1.1 % (0.0-2.0); Eosinophils # (auto) 0.3 10 ^3/uL (0-0.8); Eosinophils % (auto) 3.2 % (0.0-7.0); Hematocrit 42.1 % (41.0-53.0); Hemoglobin 14.8 g/dL (13.5-17.5); Lymphocytes # (auto) 3.6 10 ^3/uL (0.4-5.4); Lymphocytes % (auto) 45.7 % (10.0-50.0); Mean Corpuscular Hemoglobin 30.5 pg (28.0-32.0); Mean Corpuscular Hgb Conc. 35.1 g/dL (32.0-36.0); Mean Corpuscular Volume 86.8 fL (80.0-100.0); Monocytes # (auto) 0.5 10 ^3/uL (0-1.3); Monocytes % (auto) 5.8 % (0.0-12.0); Neutrophils # (auto) 3.5 10 ^3/uL (1.6-8.6); Neutrophils % (auto) 44.2 % (37.0-80.0); Nucleated Red Blood Cells % 0.2 %; Red Blood Cells 4.85 10^6/uL (4.5-5.90); Red Cell Distribution Width 13.7 % (11.8-14.3); White Blood Cell 7.8 10^3/uL (4.4-10.8)
[2024-05-11 08:09] LABS: Chloride 108 mmol/L (98-107); Sodium 137 mmol/L (136-145)
[2024-05-11 08:10] LABS: Anion Gap 5 (5-15); Calcium 8.9 mg/dL (8.5-10.1); Carbon Dioxide 24 mmol/L (20-30)
[2024-05-11 08:15] LABS: BUN/Creatinine Ratio 16.3 (10.0-20.0); Blood Urea Nitrogen 15 mg/dL (9-23); Glucose 153 mg/dL (74-106)
[2024-05-11] MEDS: MORPHINE SULFATE 4 MG/ML SYR/VIAL IV PRN (20:17)
[2024-05-12 01:00] VITALS: BP 141/75; PULSE 60; RESP 18; TEMP 98.1; O2SAT 96
[2024-05-12 05:00] VITALS: BP 125/67; PULSE 63; RESP 18; TEMP 98.3; O2SAT 98
[2024-05-12 07:55] VITALS: BP 146/75; PULSE 69; RESP 18; TEMP 97.7; O2SAT 96
[2024-05-12 08:00] VITALS: PULSE 66; PULSE 78; RESP 18; O2SAT 98
[2024-05-12] MEDS ORDERED: ATOR80TA PO (08:58)
[2024-05-12 12:03] VITALS: BP 146/75
[2024-05-12 12:43] VITALS: BP_SYST 158; BP_SYST 160; BP_DIAS 76; BP_DIAS 77; PULSE 66; PULSE 68; RESP 18; TEMP 97.7; O2SAT 95
[2024-05-12] MEDS: cloNIDine HCL 0.1 MG TAB ONE (13:23)
[2024-05-12] MEDS: cloNIDine HCL 0.1 MG TAB PO ONE (13:23)
[2024-05-12] MEDS ORDERED: ENOXAPARIN SOD 80 MG/0.8ML SYRINGE SC SCH (18:00)
== END 2024-05-12 14:20 | disposition home or self-care (01) | DRG 311 ==
LOC: ER 12:29 → TELE 17:21 → TELE-E-ADS 18:28
PROVIDERS: ADMIT Nurse Practitioner Family; ATTEND Family Medicine
DX: I24.9 Acute ischemic heart disease, unspecified (principal); I11.0 Hypertensive heart disease with heart failure; I50.9 Heart failure, unspecified; E78.5 Hyperlipidemia, unspecified; Z83.3 Family history of diabetes mellitus; Z79.899 Other long term (current) drug therapy; Z79.4 Long term (current) use of insulin; E11.65 Type 2 diabetes mellitus with hyperglycemia
CPT/HCPCS: 36415; 71045; 80048; 80053; 80061; 81001; 82962; 83036; 83735; 84484; 85025; 85379; 85610; 93005; 93306; 93970; 96361; 96374; G0378; J1815

== ENCOUNTER 2024-07-09 09:23 | Emergency (ER) | payer OTHER, MEDICAID ==
[~2024-07-09] VITALS: Ht 154.9 cm; Wt 62.7 kg
[~2024-07-09 09:23] MED LIST changes: -ACET500T58 PO; +ATOR80TA PO; -AUG875T PO; -BENZ100C97 PO; -CEPH250C PO; -FLUT1SPR5; -LEVO500T91 PO; -LIDO2SOL26 MT; -LORA-622 PO; -METH4PAK PO; -PRED20TA2 PO; -PROM1SOL4 PO
[2024-07-09] MEDS: cefTRIAXone SOD 1,000 MG VL IM ONE (10:59)
[2024-07-09] MEDS ORDERED: ACET-1080 PO (11:09)
[2024-07-09] MEDS ORDERED: AZIT-185 PO (11:09)
[2024-07-09 11:23] VITALS: BP 160/82; PULSE 87; RESP 16; TEMP 98.6; O2SAT 97
[2024-07-09 11:33] LABS: Rapid Strep A Screen-Throat Negative
== END 2024-07-09 11:27 | disposition home or self-care (01) ==
LOC: ER 09:23
DX: J03.90 Acute tonsillitis, unspecified (principal); E11.9 Type 2 diabetes mellitus without complications; E78.5 Hyperlipidemia, unspecified; I10 Essential (primary) hypertension; Z90.49 Acquired absence of other specified parts of digestive tract
CPT/HCPCS: 87070; 87880; 96372; 99283; J0696

== ENCOUNTER 2024-07-14 00:31 | Emergency (ER) | payer OTHER, MEDICAID ==
[~2024-07-14] VITALS: Ht 160 cm; Wt 63.0 kg
[~2024-07-14 00:31] MED LIST changes: +ACET-1080 PO; +AZIT-185 PO
[2024-07-14 00:43] VITALS: PULSE 74; RESP 19; TEMP 97.9; O2SAT 95
[2024-07-14 01:26] LABS: COVID19 ANTIGEN SOFIA FIA NEGATIVE (NEGATIVE); Rapid Influenza A Negative (Negative); Rapid Influenza B Negative (Negative)
[2024-07-14] MEDS ORDERED: ACET500T58 PO (02:51)
[2024-07-14] MEDS ORDERED: AMOX875T4 PO (02:51)
[2024-07-14 03:50] VITALS: BP 147/64
== END 2024-07-14 03:55 | disposition home or self-care (01) ==
LOC: ER 00:31
DX: J01.90 Acute sinusitis, unspecified (principal); E11.9 Type 2 diabetes mellitus without complications; E78.5 Hyperlipidemia, unspecified; I10 Essential (primary) hypertension; Z20.822 Contact with and (suspected) exposure to COVID-19
CPT/HCPCS: 36415; 87426; 87804

== ENCOUNTER 2024-09-24 08:32 | Emergency (ER) | payer MEDICARE, MEDICAID ==
[~2024-09-24] VITALS: Ht 160 cm; Wt 62.9 kg
[~2024-09-24 08:32] MED LIST changes: +ACET500T58 PO; +AMOX875T4 PO
[2024-09-24 08:54] VITALS: BP 137/67; PULSE 97; RESP 17; TEMP 98.7; O2SAT 97
--- NOTE | 2024-09-24 09:03 | ED.PDOC ---
History of Present Illness HPI Comments A 68 YEAR OLD MALE PRESENTS TO THE ED WITH COMPLAINT OF DOG BITE. PATIENT REPORTS THAT HE HAS HAD BEEN BITTEN BY A DOG LAST WEEK ON THE LEFT LOWER LEG, ONLY CAUSING A SMALL ABRASION. PATIENT RELAYS THAT HE HAS BEEN EXPERIENCING THROBBING PAIN TO THE BITE AREA SINCE THEN. PATIENT DENIES FEVER, CHILLS, NUMBNESS, WEAKNESS, SWELLING, DISCHARGE, OR OTHER COMPLAINTS. NO OTHER SYMPTOMS OR MODIFYING FACTORS AT THIS TIME. Chief Complaint: Animal Bite Time Seen by MD: 09:00 Primary Care Provider: NONE Reviewed Notes: Nurses Notes, Medications, Allergies Allergies: Coded Allergies: NO KNOWN ALLERGIES (Unverified , 11/20/21) Home Meds Active Scripts Naproxen (Naproxen) 500 Mg Tab, 500 MG PO BID, #30 TAB Prov:EMILY GASTELUM 09/24/24 Amoxicillin & Pot Clavulanate (Augmentin) 500 Mg Tab, 1 TAB PO BID, #14 TAB Prov:EMILY GASTELUM 09/24/24 Acetaminophen (Acetaminophen) 500 Mg Tab, 500 MG PO Q4HPRN, #30 TAB 0 Refills Prov:MINO MCNEIL 07/14/24 Amoxicillin & Pot Clavulanate (Amoxicillin/Potassium Cla) 875 Mg Tab, 1 TAB PO BID for 7 Days, #14 TAB 0 Refills Prov:MINO MCNEIL 07/14/24 Acetaminophen (Tylenol 8 Hour Arthritis) 650 Mg Tab, 650 MG PO TID, #30 TAB Prov:EMILY GASTELUM 07/09/24 Azithromycin (ZITHROMAX TABLET) 250 Mg Tb, 250 MG PO DAILY, #6 TAB Prov:EMILY GASTELUM 07/09/24 Atorvastatin Calcium (Lipitor) 80 Mg Tab, 1 TAB PO DAILY, #90 TAB 1 Refill Prov:SHIREEN ESQUEDA MD 05/12/24 Atorvastatin Calcium (Lipitor) 40 Mg Tab, 1 TAB PO QPM, #90 TAB 3 Refills Prov:SHIREEN ESQUEDA MD 08/09/23 Nifedipine (Nifedipine Er) 60 Mg Tab, 1 TAB PO BID, #180 TAB 5 Refills Prov:SHIREEN ESQUEDA MD 08/09/23 Cyclobenzaprine Hcl (Cyclobenzaprine Hcl) 5 Mg Tab, 1 TAB PO TID PRN for 7 Days, #20 TAB Prov:TAURUS ENGLISH MD 03/10/23 Sucralfate (Carafate) 1 Gm/10 Ml Kadi, 10 ML PO QID, #1200 ML 3 Refills Prov:NATASHA ABREU MD 09/07/22 Pantoprazole Sodium Sesquihydr (Protonix) 40 Mg Tab, 40 MG PO BID, #60 TAB Prov:NATASHA ABREU MD 09/07/22 Amlodipine Besylate (NORVASC TABLET) 5 Mg Tb, 2 TAB PO DAILY for 30 Days, #60 TAB 5 Refills Prov:DAYNE MCKENZIE CONDUCTOR FREIGHT 08/21/22 Hydrocodone-Acetaminophen (Hydrocodone Bitartrate/AC 5-325 mg) 1 Tab Tab, 1 TAB PO Q6HPRN PRN for 2 Days, #8 TAB Prov:DAYNE MCKENZIE CONDUCTOR FREIGHT 08/21/22 Clopidogrel Bisulfate (Plavix) 75 Mg Tab, 1 TAB PO DAILY for 30 Days, #30 TAB Prov:CHANTEL ARROYO MD 03/23/22 Reported Medications Carbamazepine (Carbamazepine) 200 Mg Tab, 200 MG PO Q12HR for 30 Days, MG 08/07/23 Metformin Hydrochloride (Metformin Hcl) 500 Mg Tab, 1000 MG PO BID for 30 Days, MG 03/20/22 Lisinopril (Lisinopril) 40 Mg Tab, 40 MG PO DAILY for 30 Days, MG 03/20/22 Information Source: Patient Mode of Arrival: Ambulatory Severity: Moderate Timing: Weeks Duration: Since onset Prehospital treatment: None Medication Refill: For: Other (LEFT LOWER LEG PUNCTURE WOUND POST DOG BITE. ) Past Medical History PAST MEDICAL HISTORY: DM, Gallstones, High Lipids, HTN Surgical History: Cholecystectomy Family History Family History: Reviewed,noncontributory to illness, Unknown Social History Smoker: Non-Smoker Alcohol: Denies ETOH Use Drugs: Denies Drug Use Lives In: Home Constitutional: denies: chills, diaphoresis, fatigue, fever, malaise, sweats, weakness, others EENTM: denies: blurred vision, double vision, ear bleeding, ear discharge, ear drainage, ear pain, ear ringing, eye pain, eye redness, hearing loss, mouth pain, mouth swelling, nasal discharge, nose bleeding, nose congestion, nose pain, photophobia, tearing, throat pain, throat swelling, voice changes, others Respiratory: denies: cough, hemoptysis, orthopnea, SOB at rest, shortness of breath, SOB with excertion, stridor, wheezing, others Cardiovascular: denies: chest pain, dizzy spells, diaphoresis, Dyspnea on exertion, edema, irregular heart beat, left arm pain, lightheadedness, palpitations, PND, syncope, others Gastrointestinal: denies: abdomen distended, abdominal pain, blood streaked bowels, constipated, diarrhea, dysphagia, difficulty swallowing, hematemesis, melena, nausea, poor appetite, poor fluid intake, rectal bleeding, rectal pain, vomiting, others Genitourinary: denies: burning, dysuria, flank pain, frequency, hematuria, incontinence, penile discharge, penile sore, pain, testicle pain, testicle swelling, urgency, others Neurological: denies: dizziness, fainting, headache, left sided numbness, left sided weakness, numbness, paresthesia, pre-existing deficit, right sided numbness, right sided weakness, seizure, speech problems, tingling, tremors, weakness, others Musculoskeletal: reports: others (LEFT LEG DOG BITE); denies: back pain, gout, joint pain, joint swelling, muscle pain, muscle stiffness, neck pain Integumetry: reports: wounds (TINY PUNCTURE WOUND TO LEFT LATERAL LOWER LEG WITH MILD REDNESS. ); denies: bruises, change in color, change in hair/nails, dryness, laceration, lesions, lumps, rash, others Allergic/Immunocompromised: denies: Difficulty Healing, Frequent Infections, Hives, Itching, others Hematologic/Lymphatic: denies: anemia, blood clots, easy bleeding, easy bruising, swollen glands, others Endocrine: denies: excessive hunger, excessive sweating, excessive thirst, excessive urination, flushing, intolerance to cold, intolerance to heat, unexplained weight gain, unexplained weight loss, others Psychiatric: denies: anxiety, bipolar disorder, depression, hopeless, panic disorder, schizophrenia, sleepless, suicidal, others All Other Systems: Reviewed and Negative Physical Exam General Appearance: No Apparent Distress, Normal HEENT: Normal ENT Inspection, PERRL/EOMI, Pharynx Normal Neck: Full Range of Motion, Non-Tender, Normal, Normal Inspection Respiratory: Chest Non-Tender, Lungs Clear, No Accessory Muscle Use, No Respiratory Distress, Normal Breath Sounds Cardiovascular: No Edema, No JVD, No Murmur, No Gallop, Normal Peripheral Pulses, Regular Rate/Rhythm Breast Exam: Deferred Gastrointestinal: No Organomegaly, Non Tender, No Pulsatile Mass, Normal Bowel Sounds, Soft Genitalia: Deferred Pelvic: Deferred Rectal: Deferred Extremities: No calf tenderness, Normal capillary refill, Normal range of motion, No pedal edema, Tender (WITH A TINY PUNCTURE WOUND ON LEFT LATERAL LOWER LEG, NO BONY TENDERNESS AND DEFORMITY. ) Musculoskeletal : Apperance: Normal Neurologic: Alert, bulb inspector II-XII nml as Tested, No Motor Deficits, Normal Affect, Normal Mood, No Sensory Deficits Cerebellar Function: Normal Reflexes: Normal Skin: Dry, Normal Color, Warm, Wounds (A TINY PUNCTURE WOUND WITH LOCALIZED REDNESS AND TENDERNESS ON LEFT LATERAL LOWER LEG, NO OPEN WOUND AND DRAINAGE. ) Peripheral Pulses: 2+ carotid (R), 2+ carotid (L), 2+ dorsalis pedis (R), 2+ dorsalis pedis (L) Lymphatic: No Adenopathy Was a procedure done? Was a procedure done?: No Differential Dx Considerations may include: DOG BITE OF LEFT LOWER LEG, PUNCTURE WOUND OF LEFT LOWER LEG X-Ray, Labs, Meds, VS Vital Signs Date Time Temp Pulse Resp B/P (MAP) Pulse Ox O2 Delivery O2 Flow Rate FiO2 09/24/24 08:54 98.7 97 17 137/67 (90) 97 98.7 09/24/24 08:54 97 17 97 Room Air 09/24/24 08:44 98.2 76 16 135/61 (85) 98 Time of 1ST Reevaluation: 09:20 Reevaluation 1ST: Improved Patient Education/Counseling: Diagnosis, Treatment, Need For Follow Up Family Education/Counseling: Diagnosis, Treatment, Need For Follow Up Medical Screening: No EMC Exist At This Time Departure 1 Departure Time of Disposition: 09:20 Impression: Primary Impression: Puncture wound of left lower leg Qualified Codes: S81.832A - Puncture wound without foreign body, left lower leg, initial encounter Additional Impression: Dog bite Qualified Codes: W54.0XXA - Bitten by dog, initial encounter Disposition: HOME / SELF CARE / HOMELESS Condition: Stable Additional Instructions: FOLLOW-UP WITH PCP IN 1 TO 2 DAYS. TAKE MEDICATIONS PRESCRIBED. RETURN TO ED FOR ANY NEW OR WORSENING SYMPTOMS. e-Prescriptions Naproxen (Naproxen) 500 Mg Tab 500 MG PO BID, #30 TAB Prov: EMILY GASTELUM 09/24/24 Amoxicillin & Pot Clavulanate (Augmentin) 500 Mg Tab 1 TAB PO BID, #14 TAB Prov: EMILY GASTELUM 09/24/24 Discharged With: Self Critical Care Note Critical Care Time?: No Stability Stability form required: No Heart Score Heart Score: Heart Score Response (Comments) Value History N/A 0 EKG N/A 0 Age N/A 0 Risk Factors N/A 0 Troponin N/A 0 Total 0 I personally scribed for EMILY GASTELUM ([email or web address]) on 09/24/24 at 09:03. Electronically submitted by Hector Haines ([email or web address]). I personally scribed for EMILY GASTELUM ([email or web address]) on 09/24/24 at 09:04. Electronically submitted by Hector Haines ([email or web address]). EMILY GASTELUM Sep 24, 2024 09:03
[2024-09-24] MEDS ORDERED: NAPR-746 PO (09:08)
[2024-09-24] MEDS ORDERED: AMOX500T86 PO (09:08)
== END 2024-09-24 09:12 | disposition home or self-care (01) ==
LOC: ER 08:32
DX: S81.832A Puncture wound without foreign body, left lower leg, initial encounter (principal); I10 Essential (primary) hypertension; E11.9 Type 2 diabetes mellitus without complications; Z79.02 Long term (current) use of antithrombotics/antiplatelets; Z79.84 Long term (current) use of oral hypoglycemic drugs; Z79.899 Other long term (current) drug therapy; Z90.49 Acquired absence of other specified parts of digestive tract; W54.0XXA Bitten by dog, initial encounter; Y93.89 Activity, other specified; Y92.89 Other specified places as the place of occurrence of the external cause; Y99.8 Other external cause status

== ENCOUNTER 2024-10-10 08:37 | Emergency (ER) | payer MEDICARE, MEDICAID ==
[~2024-10-10] VITALS: Ht 160 cm; Wt 65.2 kg
[~2024-10-10 08:37] MED LIST changes: +AMOX500T86 PO; +NAPR-746 PO
--- NOTE | 2024-10-10 09:44 | ED.PDOC ---
Musculoskeletal HPI Comments A 69 YEAR OLD MALE PRESENTS TO THE ED WITH COMPLAINT OF LEFT LOWER LEG PAIN. PATIENT STATES HE HAS BEEN EXPERIENCING LEFT LOWER LEG PAIN FOR THE PAST 3 WEEKS AFTER BEING BITTEN BY A DOG ON HIS LEFT LOWER LEG 3 WEEKS AGO. PATIENT REPORTS HE IS STILL EXPERIENCING LEFT LOWER LEG PAIN AND DESCRIBES HIS PAIN A PULSATING/THROBBING SENSATION. PATIENT NOTES HE HAS A HISTORY OF CHRONIC LOWER BACK PAIN, BUT IS NOT SURE IF THIS HAS ANYTHING TO DO WITH HIS CURRENT SYMPTOMS. PATIENT DENIES SADDLE ANESTHESIA, URINARY INCONTINENCE, BOWEL INCONTINENCE, FEVER, CHILLS, SHORTNESS OF BREATH, CHEST PAIN, ABDOMINAL PAIN, NAUSEA, VOMITING, HEADACHE, OR OTHER COMPLAINTS. NO OTHER SYMPTOMS OR MODIFYING FACTORS AT THIS TIME. PATIENT IS ALERT, ORIENTED X 4, AND HAS STEADY GAIT. Chief Complaint: Lower Extremity Time Seen by MD: 09:09 Primary Care Provider: NONE Reviewed Notes: Nurses Notes, Medications, Allergies Allergies: Coded Allergies: NO KNOWN ALLERGIES (Unverified , 11/20/21) Home Meds Active Scripts Tramadol HCl (Tramadol HCl) 50 Mg Tab, 50 MG PO BID, #20 TAB Prov:EMILY GASTELUM 10/10/24 Naproxen (Naproxen) 500 Mg Tab, 500 MG PO BID, #30 TAB Prov:EMILY GASTELUM 09/24/24 Amoxicillin & Pot Clavulanate (Augmentin) 500 Mg Tab, 1 TAB PO BID, #14 TAB Prov:EMILY GASTELUM 09/24/24 Acetaminophen (Acetaminophen) 500 Mg Tab, 500 MG PO Q4HPRN, #30 TAB 0 Refills Prov:MINO MCNEIL 07/14/24 Amoxicillin & Pot Clavulanate (Amoxicillin/Potassium Cla) 875 Mg Tab, 1 TAB PO BID for 7 Days, #14 TAB 0 Refills Prov:MINO MCNEIL 07/14/24 Acetaminophen (Tylenol 8 Hour Arthritis) 650 Mg Tab, 650 MG PO TID, #30 TAB Prov:EMILY GASTELUM 07/09/24 Azithromycin (ZITHROMAX TABLET) 250 Mg Tb, 250 MG PO DAILY, #6 TAB Prov:EMLIY GASTELUM 07/09/24 Atorvastatin Calcium (Lipitor) 80 Mg Tab, 1 TAB PO DAILY, #90 TAB 1 Refill Prov:SHIREEN ESQUEDA MD 05/12/24 Atorvastatin Calcium (Lipitor) 40 Mg Tab, 1 TAB PO QPM, #90 TAB 3 Refills Prov:SHIREEN ESQUEDA MD 08/09/23 Nifedipine (Nifedipine Er) 60 Mg Tab, 1 TAB PO BID, #180 TAB 5 Refills Prov:SHIREEN ESQUEDA MD 08/09/23 Cyclobenzaprine Hcl (Cyclobenzaprine Hcl) 5 Mg Tab, 1 TAB PO TID PRN for 7 Days, #20 TAB Prov:TAURUS ENGLISH MD 03/10/23 Sucralfate (Carafate) 1 Gm/10 Ml Kadi, 10 ML PO QID, #1200 ML 3 Refills Prov:NATASHA ABREU MD 09/07/22 Pantoprazole Sodium Sesquihydr (Protonix) 40 Mg Tab, 40 MG PO BID, #60 TAB Prov:NATASHA ABREU MD 09/07/22 Amlodipine Besylate (NORVASC TABLET) 5 Mg Tb, 2 TAB PO DAILY for 30 Days, #60 TAB 5 Refills Prov:DAYNE MCKENZIE NP 08/21/22 Hydrocodone-Acetaminophen (Hydrocodone Bitartrate/AC 5-325 mg) 1 Tab Tab, 1 TAB PO Q6HPRN PRN for 2 Days, #8 TAB Prov:DAYNE MCKENZIE NP 08/21/22 Clopidogrel Bisulfate (Plavix) 75 Mg Tab, 1 TAB PO DAILY for 30 Days, #30 TAB Prov:CHANTEL ARROYO MD 03/23/22 Reported Medications Carbamazepine (Carbamazepine) 200 Mg Tab, 200 MG PO Q12HR for 30 Days, MG 08/07/23 Metformin Hydrochloride (Metformin Hcl) 500 Mg Tab, 1000 MG PO BID for 30 Days, MG 03/20/22 Lisinopril (Lisinopril) 40 Mg Tab, 40 MG PO DAILY for 30 Days, MG 03/20/22 Information Source: Patient Mode of Arrival: Ambulatory Location: Left Extremity Location: Leg Timing: Weeks Prehospital treatment: None Severity: Moderate Able to Move Extremity: Yes Bear Weight: Fully Pain: Moderate Mechanism: Spontaneous Circumstances: Spontaneous Onset of Symptoms: Spontaneous Symptoms: Pain DVT Risk Factors: NONE Last Tetanus: Unknown Associated signs and symptoms: Leg pain Past Medical History PAST MEDICAL HISTORY: DM, Gallstones, High Lipids, HTN Past Medical History (Other): DM NEUROPATHY Surgical History: Cholecystectomy Family History Family History: Reviewed,noncontributory to illness Social History Smoker: Non-Smoker Alcohol: Denies ETOH Use Drugs: Denies Drug Use Lives In: Home Constitutional: denies: chills, diaphoresis, fatigue, fever, malaise, sweats, weakness, others EENTM: denies: blurred vision, double vision, ear bleeding, ear discharge, ear drainage, ear pain, ear ringing, eye pain, eye redness, hearing loss, mouth pain, mouth swelling, nasal discharge, nose bleeding, nose congestion, nose pain, photophobia, tearing, throat pain, throat swelling, voice changes, others Respiratory: denies: cough, hemoptysis, orthopnea, SOB at rest, shortness of breath, SOB with excertion, stridor, wheezing, others Cardiovascular: denies: chest pain, dizzy spells, diaphoresis, Dyspnea on exertion, edema, irregular heart beat, left arm pain, lightheadedness, palpitations, PND, syncope, others Gastrointestinal: denies: abdomen distended, abdominal pain, blood streaked bowels, constipated, diarrhea, dysphagia, difficulty swallowing, hematemesis, melena, nausea, poor appetite, poor fluid intake, rectal bleeding, rectal pain, vomiting, others Genitourinary: denies: burning, dysuria, flank pain, frequency, hematuria, incontinence, penile discharge, penile sore, pain, testicle pain, testicle swelling, urgency, others Neurological: denies: dizziness, fainting, headache, left sided numbness, left sided weakness, numbness, paresthesia, pre-existing deficit, right sided numbness, right sided weakness, seizure, speech problems, tingling, tremors, weakness, others Musculoskeletal: reports: back pain (CHRONIC LOWER BACK PAIN), muscle pain, others (LEFT LOWER LEG PAIN); denies: gout, joint pain, joint swelling, muscle stiffness, neck pain Integumetry: denies: bruises, change in color, change in hair/nails, dryness, laceration, lesions, lumps, rash, wounds, others Allergic/Immunocompromised: denies: Difficulty Healing, Frequent Infections, Hives, Itching, others Hematologic/Lymphatic: denies: anemia, blood clots, easy bleeding, easy bruising, swollen glands, others Endocrine: denies: excessive hunger, excessive sweating, excessive thirst, excessive urination, flushing, intolerance to cold, intolerance to heat, unexplained weight gain, unexplained weight loss, others Psychiatric: denies: anxiety, bipolar disorder, depression, hopeless, panic disorder, schizophrenia, sleepless, suicidal, others All Other Systems: Reviewed and Negative Physical Exam General Appearance: No Apparent Distress, Normal HEENT: Normal ENT Inspection, PERRL/EOMI, Pharynx Normal, TMs Normal Neck: Full Range of Motion, Non-Tender, Normal, Normal Inspection Respiratory: Chest Non-Tender, Lungs Clear, No Accessory Muscle Use, No Respiratory Distress, Normal Breath Sounds Cardiovascular: No Edema, No JVD, No Murmur, No Gallop, Normal Peripheral Pulses, Regular Rate/Rhythm Breast Exam: Deferred Gastrointestinal: No Organomegaly, Non Tender, No Pulsatile Mass, Normal Bowel Sounds, Soft Genitalia: Deferred Pelvic: Deferred Rectal: Deferred Extremities: No calf tenderness, Normal capillary refill, Normal inspection, Normal range of motion, No pedal edema, Tender (LEFT LATERAL LOWER LEG, NO REDNESS, SWELLING AND DVT SIGNS, NO OPEN WOUND SEEN. ) Musculoskeletal : Location: Bilateral Extremity Location: Back Apperance: Tenderness (AND MUSCLE SPASM ON LOWER BACK, NO BONY TENDERNESS, SWELLING AND DEFORMITY. ) Neurologic: Alert, transition coach II-XII nml as Tested, No Motor Deficits, Normal Affect, Normal Mood, No Sensory Deficits Cerebellar Function: Normal Reflexes: Normal Skin: Dry, Normal Color, Warm Peripheral Pulses: 2+ carotid (R), 2+ carotid (L) Lymphatic: No Adenopathy Was a procedure done? Was a procedure done?: No Differential Diagnosis EXT Differential Diagnosis: Deep Vein Thrombosis, Sprain, DJD, Strain, Arthritis Other Differential Diagnosis DIABETIC NEUROPATHY X-Ray, Labs, Meds, VS Vital Signs Date Time Temp Pulse Resp B/P (MAP) Pulse Ox O2 Delivery O2 Flow Rate FiO2 10/10/24 09:49 71 14 97 Room Air 10/10/24 09:49 97.6 71 14 127/69 (88) 97 97.6 10/10/24 09:23 97.6 71 14 127/69 (88) 97 Current Medications Medications (Trade) Dose Ordered Sig/[place] Route Start Time Stop Time Status Last Admin Acetaminophen/ Hydrocodone Bitart (Clay 5/325MG Tab) 1 tab ONCE ONCE PO 10/10/24 09:45 10/10/24 09:46 DC 10/10/24 09:46 Clinical History: LEFT LOWER LEG PAIN Comparison: US BILAT LOWER DVT on DOS: 05/09/24, US BILAT LOWER DVT on DOS: 04/12/24 Technique: Duplex Doppler evaluation of the deep venous system of the left lower extremity from the common femoral vein to the popliteal vein including color Doppler and spectral/pulsed waveform analysis was performed. Findings: The common femoral vein demonstrates appropriate compressibility and waveform variability. There is compressibility/patency of the great saphenous vein at the proximal thigh. The femoral vein demonstrates appropriate compressibility and waveform variability. The deep femoral vein demonstrates appropriate compressibility and waveform variability. The popliteal vein demonstrates appropriate compressibility and waveform variability. There is color flow in the tibioperoneal trunk and posterior tibial vein. Impression: 1. No deep venous thrombosis of the left lower extremity. If clinical concern/symptoms persist or worsen, short-interval follow-up study is suggested. ATED BY: MICHELLE CABAN MD DICTATED DATE/TIME: 10/10/24 1006 SIGNED BY: MICHELLE CABAN MD SIGNED DATE/TIME: 10/10/24 1006 CC: X-Ray, Labs, Meds, VS Comment EXTERNAL NOTES: NONE LABS ORDERED: NONE REVIEWED AND INTERPRETED RESULTS: NONE IMAGING ORDERED: XR L-SPINE: [INTERPRETED BY ME. NO ACUTE FRACTURE OR SUBLUXATIONS VISUALIZED. DDD OF S1, S2 VISUALIZED. PENDING RADIOLOGY REVIEW.] CV VENOUS DOPPLER LOW EXT LT INDEPENDENT HISTORIANS: NONE TREATMENTS ORDERED: NORCO 5/325 MG P.O. PATIENT'S CASE AND RESULTS HAVE BEEN DISCUSSED WITH THE ED ATTENDING PHYSICIAN AND THEY AGREE WITH MY PLAN OF CARE. I HAVE DISCUSSED IMAGING RESULTS WITH PATIENT AND HAVE INSTRUCTED THEM TO FOLLOW UP WITH THEIR PCP IN 1-2 DAYS. THE PATIENT FULLY UNDERSTANDS THEIR RESULTS AND IS AWARE THEY NEED TO FOLLOW UP WITH THEIR PCP FOR FURTHER EVALUATION IF THEIR SYMPTOMS PERSIST. Images Reviewed?: Images reviewed and evaluated by me Time of 1ST Reevaluation: 11:05 Reevaluation 1ST: Improved Patient Education/Counseling: Diagnosis, Treatment, Need For Follow Up Family Education/Counseling: Diagnosis, Treatment, Need For Follow Up Medical Screening: No EMC Exist At This Time Departure 1 Departure Time of Disposition: 11:06 Impression: Primary Impression: DDD (degenerative disc disease), lumbar Qualified Codes: M51.362 - Other intervertebral disc degeneration, lumbar r egion with discogenic back pain and lower extremity pain Additional Impressions: Lumbar radiculopathy History of diabetic neuropathy Disposition: HOME / SELF CARE / HOMELESS Condition: Stable Additional Instructions: FOLLOW-UP WITH PCP IN 1 TO 2 DAYS. TAKE MEDICATIONS PRESCRIBED. RETURN TO ED FOR ANY NEW OR WORSENING SYMPTOMS. e-Prescriptions Tramadol HCl (Tramadol HCl) 50 Mg Tab 50 MG PO BID, #20 TAB Prov: EMILY GASTELUM 10/10/24 Discharged With: Self, Relative Critical Care Note Critical Care Time?: No Stability Stability form required: No I personally scribed for EMILY GASTELUM ([email or web address]) on 10/10/24 at 09:44. Electronically submitted by Vinod Sandoval ([email or web address]). I personally scribed for EMILY GASTELUM ([email or web address]) on 10/10/24 at 10:10. Electronically submitted by Vinod Sandoval ([email or web address]). I personally scribed for EMILY GASTELUM ([email or web address]) on 10/10/24 at 10:58. Electronically submitted by Vinod Sandoval ([email or web address]). EMILY GASTELUM Oct 10, 2024 09:44
[2024-10-10] MEDS: HYDROcodone-ACET 5/325MG TAB PO ONE (09:46)
[2024-10-10 09:49] VITALS: BP 127/69; PULSE 71; RESP 14; TEMP 97.6; O2SAT 97
--- NOTE | 2024-10-10 10:08 | DVH ---
Clinical History: LEFT LOWER LEG PAIN Comparison: US BILAT LOWER DVT on DOS: 05/09/24, US BILAT LOWER DVT on DOS: 04/12/24 Technique: Duplex Doppler evaluation of the deep venous system of the left lower extremity from the common femo ral vein to the popliteal vein including color Doppler and spectral/pulsed waveform analysis was perf ormed. Findings: The common femoral vein demonstrates appropriate compressibility and waveform variability. There is compressibility/patency of the great saphenous vein at the proximal thigh. The femoral vein demonstrates appropriate compressibility and waveform variability. The deep femoral vein demonstrates appropriate compressibility and waveform variability. The popliteal vein demonstrates appropriate compressibility and waveform variability. There is color flow in the tibioperoneal trunk and posterior tibial vein. Impression: 1. No deep venous thrombosis of the left lower extremity. If clinical concern/symptoms persist or wo rsen, short-interval follow-up study is suggested.
[2024-10-10] MEDS ORDERED: TRAM-626 PO (11:01)
--- NOTE | 2024-10-10 11:10 | DVH ---
INDICATION: LOWER BACK PAIN TO LEFT LOWER LEG COMPARISON: None TECHNIQUE: 2 views of the lumbar spine were obtained. FINDINGS: The lumbar vertebral alignment is normal. Mild disc space narrowing at L5-S1. Moderate to severe facet arthropathy at L4-L5. No acute fracture, vertebral compression deformity or aggressive osseous lesions. The paravertebral soft tissues are grossly unremarkable. IMPRESSION: 1. No acute fracture. 2. Degenerative changes, as above.
== END 2024-10-10 11:08 | disposition home or self-care (01) ==
LOC: ER 08:37
DX: E11.40 Type 2 diabetes mellitus with diabetic neuropathy, unspecified (principal); M51.16 Intervertebral disc disorders with radiculopathy, lumbar region; I10 Essential (primary) hypertension; E78.5 Hyperlipidemia, unspecified; Z90.49 Acquired absence of other specified parts of digestive tract; Z79.02 Long term (current) use of antithrombotics/antiplatelets; Z79.84 Long term (current) use of oral hypoglycemic drugs; Z79.899 Other long term (current) drug therapy
CPT/HCPCS: 72100; 93971